=== PATIENT | female | born 1990 | race Hispanic/Latino ===

== ENCOUNTER 2017-09-27 10:35 | Emergency (ER) | payer SELFPAY ==
--- NOTE | 2017-09-27 12:09 | ER ---
Nurse's Notes [facility] Name: Darling Sorenson Age: 27 yrs Sex: Female : 1990 Arrival Date: 09/27/2017 Time: 10:39 Bed 5 Private MD: None, None Diagnosis: Local infection of the skin and subcutaneous tissue, unspecified Presentation: 09/27 10:51 Presenting complaint: Patient states: Painful "bump" behind left ear that started this aj AM. Transition of care: patient was not received from another setting of care. Onset of symptoms was September 27, 2017. Risk Assessment: Do you want to hurt yourself or someone else? Patient reports no desire to harm self or others. Initial Sepsis Screen: Does the patient meet any 2 criteria? No. Patient's initial sepsis screen is negative. Does the patient have a suspected source of infection? No. Patient's initial sepsis screen is negative. Care prior to arrival: None. 10:51 Method Of Arrival: Ambulatory aj 10:51 Acuity: OSCAR 4 aj Triage Assessment: 10:52 General: Appears in no apparent distress. comfortable, Behavior is calm, cooperative, aj appropriate for age. Pain: Complains of pain in left mastoid area. EENT: Lump behind left ear, no redness or drainage noted.. Neuro: Level of Consciousness is awake, alert, obeys commands, Oriented to person, place, time, situation, Appropriate for age. Respiratory: Airway is patent Respiratory effort is even, unlabored. Derm: Skin is intact, is healthy with good turgor, Skin is pink, warm \\T\\ dry. normal. 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 - Social history:: Smoking status: Patient/guardian denies using tobacco. - Ebola Screening: : Patient negative for fever greater than or equal to 101.5 degrees Fahrenheit, and additional compatible Ebola Virus Disease symptoms Patient denies exposure to infectious person Patient denies travel to an Ebola-affected area in the 21 days before illness onset No symptoms or risks identified at this time. Screenin:16 Abuse screen: Denies threats or abuse. Nutritional screening: No deficits noted. ae1 Tuberculosis screening: No symptoms or risk factors identified. Fall Risk None identified. Assessment: 11:30 General: Appears in no apparent distress. uncomfortable, Behavior is calm, cooperative, jl7 appropriate for age. Pain: Complains of pain in left ear Pain does not radiate. Pain currently is 9 out of 10 on a pain scale. Quality of pain is described as throbbing, Is continuous. Neuro: Level of Consciousness is awake, alert, obeys commands, Oriented to person, place, time, situation. Cardiovascular: Patient's skin is warm and dry. Respiratory: Airway is patent Respiratory effort is even, unlabored, Respiratory pattern is regular, agonal. EENT: ear wax noted in bilateral ears, tympanic membrane not visualized. 12:16 Reassessment: No changes from previously documented assessment. ae1 Vital Signs: 10:52 BP 133 / 97; Pulse 85; Resp 19; Temp 98.6; Pulse Ox 99% on R/A; Weight 81.65 kg; Height aj 5 ft. 3 in. (160.02 cm); 10:52 Body Mass Index 31.89 (81.65 kg, 160.02 cm) aj ED Course: 10:39 Patient arrived in ED. mr 10:39 None, None is Private Physician. mr 10:51 Triage completed. aj 10:52 Arm band placed on right wrist. Patient placed in waiting room. aj 11:30 Augie Montoya, DAVIAN is Primary Nurse. ae1 11:30 Miko Joseph PA is PHCP. jr8 11:30 Tee Goodman MD is Attending Physician. jr8 12:08 Sandie Spence MD is Referral Physician. jr8 12:16 Bed in low position. Call light in reach. Side rails up X 1. Pulse ox on. NIBP on. ae1 12:16 No provider procedures requiring assistance completed. Patient did not have IV access ae1 during this emergency room visit. Administered Medications: No medications were administered Outcome: 12:09 Discharge ordered by . jr8 12:16 Discharged to home ambulatory. ae1 12:16 Condition: stable 12:16 Discharge instructions given to patient, Instructed on discharge instructions, follow up and referral plans. medication usage, Demonstrated understanding of instructions, Prescriptions given X 3. 12:17 Patient left the ED. ae1 Signatures: Munira Marie, RN Sapphire Bell Josh, PA PA jr8 Augie Montoya RN RN ae1 Riley Anguiano RN RN jl7
--- NOTE | 2017-09-27 12:10 | EDPHYS ---
Physician Documentation [facility] Name: Darling Sorenson Age: 27 yrs Sex: Female : 1990 Arrival Date: 09/27/2017 Time: 10:39 Bed 5 Private MD: None, None ED Physician Tee Goodman HPI: 09/27 12:02 This 27 yrs old Female presents to ER via Ambulatory with complaints of Ear jr8 Pain, Headache. 12:02 The patient presents with pain, tenderness. The complaints affect the posterior aspect jr8 of left ear. Onset: The symptoms/episode began/occurred acutely, yesterday. Modifying factors: The symptoms are alleviated by nothing, the symptoms are aggravated by touching. Associated signs and symptoms: The patient has no apparent associated signs or symptoms. Severity of symptoms: At their worst the symptoms were moderate in the emergency department the symptoms are unchanged. The patient has not experienced similar symptoms in the past. The patient has not recently seen a physician. 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 - Social history:: Smoking status: Patient/guardian denies using tobacco. - Ebola Screening: : Patient negative for fever greater than or equal to 101.5 degrees Fahrenheit, and additional compatible Ebola Virus Disease symptoms Patient denies exposure to infectious person Patient denies travel to an Ebola-affected area in the 21 days before illness onset No symptoms or risks identified at this time. ROS: 12:02 Eyes: Negative for injury, pain, redness, and discharge, Neck: Negative for injury, jr8 pain, and swelling, Cardiovascular: Negative for chest pain, palpitations, and edema, Respiratory: Negative for shortness of breath, cough, wheezing, and pleuritic chest pain, Abdomen/GI: Negative for abdominal pain, nausea, vomiting, diarrhea, and constipation, Back: Negative for injury and pain, MS/Extremity: Negative for injury and deformity, Skin: Negative for injury, rash, and discoloration. 12:02 ENT: Positive for ear pain, Negative for drainage from ear(s), tinnitus. 12:02 Neuro: Positive for headache. Exam: 12:02 Head/Face: Normocephalic, atraumatic. Eyes: Pupils equal round and reactive to light, jr8 extra-ocular motions intact. Lids and lashes normal. Conjunctiva and sclera are non-icteric and not injected. Cornea within normal limits. Periorbital areas with no swelling, redness, or edema. Neck: Trachea midline, no thyromegaly or masses palpated, and no cervical lymphadenopathy. Supple, full range of motion without nuchal rigidity, or vertebral point tenderness. No Meningismus. Cardiovascular: Regular rate and rhythm with a normal S1 and S2. No gallops, murmurs, or rubs. Normal PMI, no JVD. No pulse deficits. Respiratory: Lungs have equal breath sounds bilaterally, clear to auscultation and percussion. No rales, rhonchi or wheezes noted. No increased work of breathing, no retractions or nasal flaring. Abdomen/GI: Soft, non-tender, with normal bowel sounds. No distension or tympany. No guarding or rebound. No evidence of tenderness throughout. Back: No spinal tenderness. No costovertebral tenderness. Full range of motion. Skin: Warm, dry with normal turgor. Normal color with no rashes, no lesions, and no evidence of cellulitis. MS/ Extremity: Pulses equal, no cyanosis. Neurovascular intact. Full, normal range of motion. Neuro: Awake and alert, GCS 15, oriented to person, place, time, and situation. Cranial nerves II-XII grossly intact. Motor strength 5/5 in all extremities. Sensory grossly intact. Cerebellar exam normal. Normal gait. 12:02 ENT: External ear(s): posterior aspect of cartilage near lobule of ear is inflamed. No fluctuance noted, Ear canal(s): are normal, TM's: are normal, Examination of the other ear shows no obvious abnormality, Nose: is normal, Mouth: is normal, Posterior pharynx: is normal. Vital Signs: 10:52 BP 133 / 97; Pulse 85; Resp 19; Temp 98.6; Pulse Ox 99% on R/A; Weight 81.65 kg; Height aj 5 ft. 3 in. (160.02 cm); 10:52 Body Mass Index 31.89 (81.65 kg, 160.02 cm) aj MDM: 11:30 Patient medically screened. jr8 12:02 Data reviewed: vital signs, nurses notes, and as a result, I will discharge patient. jr8 Data interpreted: Pulse oximetry: on room air is 99 %. Interpretation: normal. Counseling: I had a detailed discussion with the patient and/or guardian regarding: the historical points, exam findings, and any diagnostic results supporting the discharge/admit diagnosis, the need for outpatient follow up, an ENT specialist, a family practitioner, to return to the emergency department if symptoms worsen or persist or if there are any questions or concerns that arise at home. Administered Medications: No medications were administered Disposition: 15:28 Co-signature as Attending Physician, Tee Goodman MD. rn Disposition: 09/27/17 12:09 Discharged to Home. Impression: Local infection of the skin and subcutaneous tissue, unspecified. - Condition is Stable. - Prescriptions for Ibuprofen 800 mg Oral Tablet - take 1 tablet by ORAL route every 12 hours As needed take with food; 20 tablet. Tylenol- Codeine #3 300-30 mg Oral Tablet - take 2 tablets by ORAL route every 6 hours As needed; 20 tablet. Bactrim DS 800- 160 mg Oral Tablet - take 1 tablet by ORAL route every 12 hours for 10 days; 20 tablet. - Medication Reconciliation Form, Thank You Letter, Antibiotic Education, Prescription Opioid Use, Work release form form. - Follow up: Sandie Spence MD; When: 1 week; Reason: If symptoms return, Recheck today's complaints, Continuance of care, Re-evaluation by your physician. - Problem is new. - Symptoms have improved. Signatures: Munira Marie RN RN aj Nieto, Roman, MD MD rn Roszak, Josh, PA PA jr8 Augie Montoya RN RN ae1 Corrections: (The following items were deleted from the chart) 12:17 12:09 09/27/2017 12:09 Discharged to Home. Impression: Local infection of the skin and ae1 subcutaneous tissue, unspecified. Condition is Stable. Forms are Medication Reconciliation Form, Thank You Letter, Antibiotic Education, Prescription Opioid Use. Follow up: Sandie Spence; When: 1 week; Reason: If symptoms return, Recheck today's complaints, Continuance of care, Re-evaluation by your physician. Problem is new. Symptoms have improved. jr8
[2017-09-27 12:21] VITALS: BP 133/97; TEMP 98.6; O2SAT 99
== END 2017-09-27 12:17 | disposition home or self-care (01) ==
LOC: ER 10:35
DX: L08.9 Local infection of the skin and subcutaneous tissue, unspecified (principal); H92.02 Otalgia, left ear; Z88.0 Allergy status to penicillin
CPT/HCPCS: 99283

== ENCOUNTER 2017-09-29 17:20 | Emergency (ER) | payer SELFPAY ==
[2017-09-29] MEDS ORDERED: HYDROCODONE/APAP 7.5/325 MG TAB ONE (18:15)
--- NOTE | 2017-09-29 18:16 | ER ---
Nurse's Notes [facility] Name: Darling Sorenson Age: 27 yrs Sex: Female : 1990 Arrival Date: 09/29/2017 Time: 17:23 Bed 15 Private MD: None, None Diagnosis: Cutaneous abscess of other sites-Left post auricular region Presentation: 09/29 18:00 Presenting complaint: Patient states: she was here last Fri for ear pain and was mg2 prescribed antibiotics but to no relief. there is a bump or abscess in the back of her left ear. Transition of care: patient was not received from another setting of care. Onset of symptoms was September 2017. Risk Assessment: Do you want to hurt yourself or someone else? Patient reports no desire to harm self or others. Initial Sepsis Screen: Does the patient meet any 2 criteria? No. Patient's initial sepsis screen is negative. Does the patient have a suspected source of infection? No. Patient's initial sepsis screen is negative. Care prior to arrival: None. 18:00 Method Of Arrival: Ambulatory mg2 18:00 Acuity: OSCAR 4 mg2 Triage Assessment: 18:25 General: Appears in no apparent distress. Behavior is calm. 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 - Social history:: Smoking status: Patient/guardian denies using tobacco, Patient uses alcohol, occasionally. - Ebola Screening: : No symptoms or risks identified at this time. Screenin:06 Abuse screen: Denies threats or abuse. Denies injuries from another. Nutritional mg2 screening: No deficits noted. Tuberculosis screening: No symptoms or risk factors identified. Fall Risk None identified. Assessment: 18:06 Pain: Complains of pain in back of left ear. EENT: back of ear abscess. Derm: Skin is mg2 intact, Skin is pink, warm \T\ dry. normal. Vital Signs: 18:05 BP 135 / 63; Pulse 91; Resp 18; Temp 97.7; Pulse Ox 100% on R/A; Weight 81.65 kg; mg2 Height 5 ft. 3 in. (160.02 cm); Pain 8/10; 18:23 BP 127 / 57; Pulse 68; Resp 18; Pulse Ox 100% on R/A; em 18:05 Body Mass Index 31.89 (81.65 kg, 160.02 cm) mg2 ED Course: 17:23 Patient arrived in ED. mr 17:23 None, None is Private Physician. mr 17:52 Miko Joseph PA is PHCP. jr8 17:52 Kris Thompson MD is Attending Physician. jr8 17:59 Quoc Mccoy, RN is Primary Nurse. mg2 18:02 Triage completed. mg2 18:06 Arm band placed on. mg2 18:07 No provider procedures requiring assistance completed. mg2 18:10 Patient has correct armband on for positive identification. mg2 18:23 Dressings: Band aid x 1 in the left ear done with neosporin and band aid applied. mg2 18:24 Patient did not have IV access during this emergency room visit. em Administered Medications: 18:14 Drug: [place] (7.5 mg-325 mg) 1 tabs Route: PO; mg2 18:24 Follow up: Response: No adverse reaction mg2 18:24 Follow up: Response: No adverse reaction; Pain is decreased em Outcome: 18:15 Discharge ordered by . jr8 18:24 Discharged to home ambulatory. em 18:24 Condition: good 18:24 Discharge instructions given to patient, Instructed on discharge instructions, follow up and referral plans. Demonstrated understanding of instructions, follow-up care. 18:25 Patient left the ED. em Signatures: Sapphire Arizmendi mr MinerAbraham, SOLAR DESIGN ENGINEER SOLAR DESIGN ENGINEER em Miko Joseph PA PA jr8 Quoc Mccoy, RN RN mg2
--- NOTE | 2017-09-29 18:16 | EDPHYS ---
Physician Documentation [facility] Name: Darling Sorenson Age: 27 yrs Sex: Female : 1990 Arrival Date: 09/29/2017 Time: 17:23 Bed 15 Private MD: None, None ED Physician Kris Thompson HPI: 09/29 18:09 This 27 yrs old Female presents to ER via Ambulatory with complaints of Ear jr8 Pain. 18:09 The patient presents with pain, swelling, tenderness. Associated signs and symptoms: jr8 The patient has no apparent associated signs or symptoms. The patient has not experienced similar symptoms in the past. The patient has been recently seen by a physician:. Patient seen the other day and given antibiotics for infected region behind ear. Came back today because there is pustule formation . 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 - Social history:: Smoking status: Patient/guardian denies using tobacco, Patient uses alcohol, occasionally. - Ebola Screening: : No symptoms or risks identified at this time. ROS: 18:09 Eyes: Negative for injury, pain, redness, and discharge, ENT: Patient has pain and jr8 swelling to left post auricular region. Negative for inner ear discharge, nasal discharge, eye pain Neck: Negative for injury, pain, and swelling, Cardiovascular: Negative for chest pain, palpitations, and edema, Respiratory: Negative for shortness of breath, cough, wheezing, and pleuritic chest pain, Abdomen/GI: Negative for abdominal pain, nausea, vomiting, diarrhea, and constipation, Back: Negative for injury and pain, MS/Extremity: Negative for injury and deformity, Skin: Negative for injury, rash, and discoloration, Neuro: Negative for headache, weakness, numbness, tingling, and seizure. Exam: 18:09 Eyes: Pupils equal round and reactive to light, extra-ocular motions intact. Lids and jr8 lashes normal. Conjunctiva and sclera are non-icteric and not injected. Cornea within normal limits. Periorbital areas with no swelling, redness, or edema. ENT: Nares patent. No nasal discharge, no septal abnormalities noted. Tympanic membranes are normal and external auditory canals are clear. Oropharynx with no redness, swelling, or masses, exudates, or evidence of obstruction, uvula midline. Mucous membranes moist. Neck: Trachea midline, no thyromegaly or masses palpated, and no cervical lymphadenopathy. Supple, full range of motion without nuchal rigidity, or vertebral point tenderness. No Meningismus. Cardiovascular: Regular rate and rhythm with a normal S1 and S2. No gallops, murmurs, or rubs. Normal PMI, no JVD. No pulse deficits. Respiratory: Lungs have equal breath sounds bilaterally, clear to auscultation and percussion. No rales, rhonchi or wheezes noted. No increased work of breathing, no retractions or nasal flaring. Abdomen/GI: Soft, non-tender, with normal bowel sounds. No distension or tympany. No guarding or rebound. No evidence of tenderness throughout. Back: No spinal tenderness. No costovertebral tenderness. Full range of motion. Skin: Warm, dry with normal turgor. Normal color with no rashes, no lesions, and no evidence of cellulitis. MS/ Extremity: Pulses equal, no cyanosis. Neurovascular intact. Full, normal range of motion. Neuro: Awake and alert, GCS 15, oriented to person, place, time, and situation. Cranial nerves II-XII grossly intact. Motor strength 5/5 in all extremities. Sensory grossly intact. Cerebellar exam normal. Normal gait. 18:09 Head/face: Noted is small abscess to left post auricular region. Vital Signs: 18:05 BP 135 / 63; Pulse 91; Resp 18; Temp 97.7; Pulse Ox 100% on R/A; Weight 81.65 kg; mg2 Height 5 ft. 3 in. (160.02 cm); Pain 8/10; 18:23 BP 127 / 57; Pulse 68; Resp 18; Pulse Ox 100% on R/A; em 18:05 Body Mass Index 31.89 (81.65 kg, 160.02 cm) mg2 Procedures: 18:09 I \T\ D: Incision and drainage was performed for an abscess of the left post auricular jr8 region Patient has small 2 cm abscess behind ear. Palpation of abscess alone deroofed abscess and drained about 3 cc of purulent matter from abscess . MDM: 17:52 Patient medically screened. jr8 18:09 Data reviewed: vital signs, nurses notes, lab test result(s), and as a result, I will jr8 discharge patient. Data interpreted: Pulse oximetry: on room air is 100 %. Interpretation: normal. Counseling: I had a detailed discussion with the patient and/or guardian regarding: the historical points, exam findings, and any diagnostic results supporting the discharge/admit diagnosis, lab results, the need for outpatient follow up, to return to the emergency department if symptoms worsen or persist or if there are any questions or concerns that arise at home. ED course: Told patient to let it continue to bleed and naturally drained. Abscess was drained to only blood was seen. To continue Bactrim. If we need to change antibiotics, that we will notify her after culture was grown . 09/29 18:09 Order name: Wound Culture jr8 Administered Medications: 18:14 Drug: [place] (7.5 mg-325 mg) 1 tabs Route: PO; mg2 18:24 Follow up: Response: No adverse reaction mg2 18:24 Follow up: Response: No adverse reaction; Pain is decreased em Disposition: 09/30 10:33 Co-signature as Attending Physician, Kris Thompson MD. Disposition: 09/29/17 18:15 Discharged to Home. Impression: Cutaneous abscess of other sites - Left post auricular region . - Condition is Stable. - Discharge Instructions: Abscess, Incision and Drainage. - Medication Reconciliation Form, Thank You Letter, Antibiotic Education, Prescription Opioid Use form. - Follow up: Private Physician; When: 5 - 6 days; Reason: Recheck today's complaints, Continuance of care, Re-evaluation by your physician. - Problem is new. - Symptoms have improved. Signatures: Dispatcher [employer] EDMS Abraham Miner, CARE MANAGEMENT ASSISTANT CARE MANAGEMENT ASSISTANT em Miko Joseph PA PA jrKris Ramsay MD MD Quoc Mccoy RN RN mg2 Corrections: (The following items were deleted from the chart) 09/29 18:12 18:09 Head/face: Noted is small abscess to post auricular region. jr8 jr8 18:25 18:15 09/29/2017 18:15 Discharged to Home. Impression: Cutaneous abscess of other sites em - Left post auricular region . Condition is Stable. Forms are Medication Reconciliation Form, Thank You Letter, Antibiotic Education, Prescription Opioid Use. Follow up: Private Physician; When: 5 - 6 days; Reason: Recheck today's complaints, Continuance of care, Re-evaluation by your physician. Problem is new. Symptoms have improved. jr8
[2017-09-29 18:30] VITALS: TEMP 97.7; O2SAT 100
[2017-09-29 18:31] VITALS: BP 127/57
== END 2017-09-29 18:25 | disposition home or self-care (01) ==
LOC: ER 17:20
PROC: 0H93XZZ Drainage of Left Ear Skin, External Approach (ICD-10-PCS; principal; 2017-09-29)
DX: H60.02 Abscess of left external ear (principal); Z88.0 Allergy status to penicillin
CPT/HCPCS: 87070; 87205; 99283

== ENCOUNTER 2018-02-19 11:26 | Emergency (ER) | payer SELFPAY ==
--- NOTE | 2018-02-19 13:13 | RAD REPORT ---
EXAM DESCRIPTION: Jeff Rodriguez And Maggy (2 Views)02/19/2018 12:48 pm CLINICAL HISTORY: Cough COMPARISON: None FINDINGS: An area of subsegmental axis present within the left lung base. The remainder of the lungs appear clear of acute infiltrate. The heart is normal size
--- NOTE | 2018-02-19 13:45 | ER ---
Nurse's Notes [facility] Name: Darling Sorenson Age: 27 yrs Sex: Female : 1990 Arrival Date: 02/19/2018 Time: 11:31 Bed 10 Private MD: None, None Diagnosis: Muscle spasm;Acute bronchitis Presentation: 02/19 11:43 Presenting complaint: Patient states: Cough, congestion, pain with cough or deep breath aj fro 3 days. Transition of care: patient was not received from another setting of care. Onset of symptoms was February 16, 2018. Risk Assessment: Do you want to hurt yourself or someone else? Patient reports no desire to harm self or others. Initial Sepsis Screen: Does the patient meet any 2 criteria? No. Patient's initial sepsis screen is negative. Does the patient have a suspected source of infection? No. Patient's initial sepsis screen is negative. Care prior to arrival: None. 11:43 Method Of Arrival: Ambulatory aj 11:43 Acuity: OSCAR 3 aj Triage Assessment: 11:45 General: Appears in no apparent distress. comfortable, Behavior is calm, cooperative, aj appropriate for age. EENT: Reports nasal congestion nasal discharge. Neuro: Level of Consciousness is awake, alert, obeys commands, Oriented to person, place, time, situation, Appropriate for age. Respiratory: Reports cough that is pain with cough pain with respiration Airway is patent Respiratory effort is even, unlabored, Respiratory pattern is regular, symmetrical, Onset: The symptoms/episode began/occurred gradually, the patient has mild shortness of breath. Derm: Skin is intact, is healthy with good turgor, Skin is pink, warm \T\ dry. normal. 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 - Social history:: Smoking status: Patient/guardian denies using tobacco. - Ebola Screening: : Patient negative for fever greater than or equal to 101.5 degrees Fahrenheit, and additional compatible Ebola Virus Disease symptoms Patient denies exposure to infectious person Patient denies travel to an Ebola-affected area in the 21 days before illness onset No symptoms or risks identified at this time. Screenin:15 Abuse screen: Denies threats or abuse. Denies injuries from another. Nutritional iw screening: No deficits noted. Tuberculosis screening: No symptoms or risk factors identified. Fall Risk None identified. Assessment: 13:15 General: Appears in no apparent distress. Pain: Complains of pain in left trapezius and iw anterior aspect of left upper chest and left clavicle. Neuro: Level of Consciousness is awake, alert, obeys commands, Oriented to person, place, time. Cardiovascular: Rhythm is regular. Respiratory: Airway is patent Breath sounds are clear bilaterally. GI: No signs and/or symptoms were reported involving the gastrointestinal system. Derm: Skin is intact, is healthy with good turgor. Musculoskeletal: Range of motion: intact in all extremities. Vital Signs: 11:45 BP 135 / 79; Pulse 90; Resp 20; Temp 97.3(O); Pulse Ox 98% on R/A; Weight 86.18 kg; aj Height 5 ft. 3 in. (160.02 cm); 11:45 Body Mass Index 33.66 (86.18 kg, 160.02 cm) aj ED Course: 11:31 Patient arrived in ED. mr 11:31 None, None is Private Physician. mr 11:44 Triage completed. aj 11:45 Arm band placed on left wrist. Patient placed in waiting room, Patient notified of wait aj time. Labs ordered per protocol. X-ray ordered. 12:34 Patient moved to radiology via wheelchair. jb2 12:34 Terri Coronado, DAVIAN is Primary Nurse. iw 12:35 Anthony Snyder PA is PHCP. jmm 12:35 Jason Lezama MD is Attending Physician. jmm 12:41 X-ray completed. Patient tolerated procedure well. Patient moved back from radiology. jb2 12:41 XRAY Chest Pa And Lat (2 Views) In Process Unspecified. EDMS 13:20 Patient has correct armband on for positive identification. iw 14:10 No provider procedures requiring assistance completed. Patient did not have IV access iw during this emergency room visit. Administered Medications: No medications were administered Outcome: 13:45 Discharge ordered by . jmm 14:12 Discharged to home ambulatory. iw 14:12 Condition: good 14:12 Discharge instructions given to patient, Instructed on discharge instructions, follow up and referral plans. medication usage, Demonstrated understanding of instructions, follow-up care, medications, Prescriptions given X 3. 14:13 Patient left the ED. iw Signatures: Dispatcher [employer] Munira Pabon, Anthony Rodriguez RN, PA PA jmm Rivera, Mary mr Munson, Jim jb2 Terri Coronado RN RN iw
--- NOTE | 2018-02-19 13:45 | EDPHYS ---
Physician Documentation [facility] Name: Darling Sorenson Age: 27 yrs Sex: Female : 1990 Arrival Date: 02/19/2018 Time: 11:31 Bed 10 Private MD: None, None ED Physician Jason Lezama HPI: 02/19 13:35 This 27 yrs old Female presents to ER via Ambulatory with complaints of jmm Breathing Difficulty, Painful Cough. 13:35 The patient or guardian reports cough, that is intermittent. Onset: The jmm symptoms/episode began/occurred gradually. Modifying factors: the symptoms are aggravated by. Associated signs and symptoms: Pertinent positives: sore throat. This is a 27 year old female with no chronic medical conditions that presents to the ED with cough, sore throat, with left upper back pain worsened with cough. . 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 - Social history:: Smoking status: Patient/guardian denies using tobacco. - Ebola Screening: : Patient negative for fever greater than or equal to 101.5 degrees Fahrenheit, and additional compatible Ebola Virus Disease symptoms Patient denies exposure to infectious person Patient denies travel to an Ebola-affected area in the 21 days before illness onset No symptoms or risks identified at this time. ROS: 13:35 Constitutional: Negative for fever, chills, and weight loss, Eyes: Negative for injury, jmm pain, redness, and discharge. 13:35 Abdomen/GI: Negative for abdominal pain, nausea, vomiting, diarrhea, and constipation. 13:35 MS/Extremity: Negative for injury and deformity, Skin: Negative for injury, rash, and discoloration. 13:35 Cardiovascular: Positive for chest pain, with cough. 13:35 Respiratory: Positive for cough. 13:35 Back: Positive for pain with movement. 13:35 All other systems are negative. Exam: 13:35 Head/Face: atraumatic. ENT: Moist Mucus Membranes Neck: Trachea midline, Supple jmm 13:35 Constitutional: The patient appears in no acute distress, alert, awake. 13:35 Chest/axilla: Palpation: tenderness, that is mild, of the left clavicle and anterior aspect of left upper chest, that totally reproduces the patient's complaints. 13:35 Cardiovascular: Rate: normal, Rhythm: regular. 13:35 Respiratory: the patient does not display signs of respiratory distress, Respirations: normal, Breath sounds: are clear throughout. 13:35 Abdomen/GI: Inspection: abdomen appears normal, Bowel sounds: normal, Palpation: abdomen is soft and non-tender. 13:35 Back: muscle spasm, is appreciated in the left trapezius. 13:35 Musculoskeletal/extremity: ROM: intact in all extremities. 13:35 Skin: Appearance: Color: normal in color. 13:35 Neuro: Orientation: is normal, Mentation: is normal, Memory: is normal. 13:35 Psych: Behavior/mood is pleasant, cooperative. Vital Signs: 11:45 BP 135 / 79; Pulse 90; Resp 20; Temp 97.3(O); Pulse Ox 98% on R/A; Weight 86.18 kg; aj Height 5 ft. 3 in. (160.02 cm); 11:45 Body Mass Index 33.66 (86.18 kg, 160.02 cm) aj MDM: 12:52 Patient medically screened. [facility] 13:43 Data reviewed: vital signs, nurses notes, lab test result(s), radiologic studies, plain [facility] films. Counseling: I had a detailed discussion with the patient and/or guardian regarding: the historical points, exam findings, and any diagnostic results supporting the discharge/admit diagnosis, lab results, radiology results, the need for outpatient follow up, to return to the emergency department if symptoms worsen or persist or if there are any questions or concerns that arise at home. 13:43 Data interpreted: Pulse oximetry: on room air is 98 %. Interpretation: normal. [facility] 13:43 ED course: PE findings consistent with musculoskeletal chest pain. Patient is alert and jmm non toxic in appearance in the ED. Patient given strict return precautions. Patient understood and agrees with the plan of care. . 02/19 11:47 Order name: Flu; Complete Time: 12:55 02/19 11:47 Order name: Strep; Complete Time: 12:55 02/19 11:47 Order name: XRAY Chest Pa And Lat (2 Views); Complete Time: 13:16 beatriz 02/19 12:16 Order name: Throat Culture EDMS Administered Medications: No medications were administered Disposition: 16:59 Co-signature as Attending Physician, Jason Lezama MD I agree with the assessment and [facility] plan of care. Disposition: 02/19/18 13:45 Discharged to Home. Impression: Muscle spasm, Acute bronchitis. - Condition is Stable. - Discharge Instructions: Acute Bronchitis, Adult, Spasticity. - Prescriptions for promethazine- DM - take 5 milliliter by ORAL route every 4-6 hours; 120 milliliter. Cyclobenzaprine 10 mg Oral Tablet - take 1 tablet by ORAL route every 8 hours As needed; 30 tablet. Albuterol Sulfate 90 mcg/actuation - inhale 1-2 puff by INHALATION route every 4-6 hours; 1 Inhaler. - Medication Reconciliation Form, Thank You Letter, Antibiotic Education, Prescription Opioid Use, Work release form form. - Follow up: Private Physician; When: 2 - 3 days; Reason: Recheck today's complaints, Continuance of care, Re-evaluation by your physician. Signatures: Dispatcher [employer] Munira Pabon, RN RN Jason Haynes MD MD cha Mickail, Joel, PA PA jmm Williams, Irene, RN RN iw Corrections: (The following items were deleted from the chart) 14:13 13:45 02/19/2018 13:45 Discharged to Home. Impression: Muscle spasm; Acute bronchitis. iw Condition is Stable. Forms are Medication Reconciliation Form, Thank You Letter, Antibiotic Education, Prescription Opioid Use. Follow up: Private Physician; When: 2 - 3 days; Reason: Recheck today's complaints, Continuance of care, Re-evaluation by your physician. christina
[2018-02-19] MEDS ORDERED: DEXAMETHASONE 4 MG/ML VIAL ONE (14:07)
[2018-02-19 15:54] VITALS: BP 135/79; TEMP 97.3; O2SAT 98
== END 2018-02-19 14:13 | disposition home or self-care (01) ==
LOC: ER 11:26
DX: J20.9 Acute bronchitis, unspecified (principal); M62.830 Muscle spasm of back; Z88.0 Allergy status to penicillin; Z88.1 Allergy status to other antibiotic agents
CPT/HCPCS: 71046; 87070; 87081; 87804; 99283

== ENCOUNTER 2018-09-07 08:26 | Emergency (ER) | payer SELFPAY ==
--- NOTE | 2018-09-07 08:56 | EDPHYS ---
Physician Documentation [facility] Name: Darling Sorenson Age: 28 yrs Sex: Female : 1990 Arrival Date: 09/07/2018 Time: 08:28 Bed 18 Private MD: ED Physician Kris Thompson HPI: 09/07 08:50 This 28 yrs old Female presents to ER via Ambulatory with complaints of Eye gs Problem. 08:50 The patient is experiencing pain, redness, The patient sustained Unknown. to the right gs eye. Onset: The symptoms/episode began/occurred gradually, yesterday. Duration: the symptoms are continuous. Aggravated by blinking, closing eye. Associated signs and symptoms: Pertinent negatives: fever, headache. Patient wears soft contacts. Severity of symptoms: At their worst the symptoms were severe in the emergency department the symptoms are unchanged. The patient has experienced similar episodes in the past, a few times. 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 - Social history:: Smoking status: Patient/guardian denies using tobacco. - Ebola Screening: : No symptoms or risks identified at this time. ROS: 08:50 All other systems are negative. gs Exam: 08:50 Head/Face: Normocephalic, atraumatic. ENT: Nares patent. No nasal discharge, no gs septal abnormalities noted. Tympanic membranes are normal and external auditory canals are clear. Oropharynx with no redness, swelling, or masses, exudates, or evidence of obstruction, uvula midline. Mucous membranes moist. Neck: Trachea midline, no thyromegaly or masses palpated, and no cervical lymphadenopathy. Supple, full range of motion without nuchal rigidity, or vertebral point tenderness. No Meningismus. 08:50 Eyes: Periorbital structures: appear normal, Pupils: no acute changes, normal size, equal, round, and reactive to light and accomodation, Extraocular movements: intact throughout, Conjunctiva: injected, in the right eye, Corneas: are normal, Anterior chamber: normal, no hyphema. Vital Signs: 08:42 BP 104 / 69; Pulse 84; Resp 16; Temp 97.5(TE); Pulse Ox 100% on R/A; Weight 92.08 kg; mh5 Height 5 ft. 3 in. (160.02 cm); Pain 7/10; 08:45 BP 104 / 69; Pulse 84; Resp 16; Temp 97.5; Pulse Ox 100% ; Weight 92.08 kg; Height 5 bp ft. 3 in. (160.02 cm); 09:18 BP 102 / 64; Pulse 72; Resp 16; Pulse Ox 98% ; bp 08:45 Body Mass Index 35.96 (92.08 kg, 160.02 cm) bp MDM: 08:50 Patient medically screened. 08:50 Differential diagnosis: Corneal abrasion of Data reviewed: vital signs, nurses notes. gs Administered Medications: No medications were administered Disposition: 09/07/18 08:55 Discharged to Home. Impression: Conjunctivitis. - Condition is Stable. - Discharge Instructions: Bacterial Conjunctivitis. - Prescriptions for Ocuflox 0.3 % Ophthalmic Drops - instill 2 drops by OPHTHALMIC route every 6 hours for 5 days; 5 milliliter. - Work release form, Medication Reconciliation Form, Thank You Letter, Antibiotic Education, Prescription Opioid Use form. - Follow up: Private Physician; When: 2 - 3 days; Reason: Re-evaluation by your physician. Signatures: Kris Thompson MD MD gs Peltier, Brian RN RN bp Corrections: (The following items were deleted from the chart) 09:19 08:55 09/07/2018 08:55 Discharged to Home. Impression: Conjunctivitis. Condition is bp Stable. Forms are Medication Reconciliation Form, Thank You Letter, Antibiotic Education, Prescription Opioid Use. Follow up: Private Physician; When: 2 - 3 days; Reason: Re-evaluation by your physician. gs
--- NOTE | 2018-09-07 08:56 | ER ---
Nurse's Notes [facility] Name: Darling Sorenson Age: 28 yrs Sex: Female : 1990 Arrival Date: 09/07/2018 Time: 08:28 Bed 18 Private MD: Diagnosis: Conjunctivitis Presentation: 09/07 08:30 Presenting complaint: Patient states: R EYE REDNESS. Transition of care: patient was bp not received from another setting of care. Onset of symptoms is unknown. Risk Assessment: Do you want to hurt yourself or someone else? Patient reports no desire to harm self or others. Initial Sepsis Screen: Does the patient meet any 2 criteria? No. Patient's initial sepsis screen is negative. Does the patient have a suspected source of infection? No. Patient's initial sepsis screen is negative. Care prior to arrival: None. 08:30 Method Of Arrival: Ambulatory bp 08:30 Acuity: OSCAR 4 bp Triage Assessment: 08:45 General: Appears in no apparent distress. comfortable, Behavior is cooperative, bp appropriate for age, anxious. Pain: Complains of pain in right eye. EENT: Eyes with exudate noted from right eye. Neuro: Level of Consciousness is awake, alert, obeys commands, Oriented to person, place, time, situation, Appropriate for age. Cardiovascular: No deficits noted. Respiratory: Airway is patent Respiratory effort is even, unlabored, Respiratory pattern is regular, symmetrical. GI: No signs and/or symptoms were reported involving the gastrointestinal system. : No signs and/or symptoms were reported regarding the genitourinary system. Derm: No deficits noted. Musculoskeletal: No deficits noted. 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 - Social history:: Smoking status: Patient/guardian denies using tobacco. - Ebola Screening: : No symptoms or risks identified at this time. Screenin:48 Abuse screen: Denies threats or abuse. Denies injuries from another. Nutritional bp screening: No deficits noted. Tuberculosis screening: No symptoms or risk factors identified. Fall Risk None identified. Assessment: 08:48 General: SEE TRIAGE NOTE. bp 09:19 Reassessment: PT D/C HOME AMBULATORY, DX WITH BACTERIAL CONJUNCTIVITIS. bp Vital Signs: 08:42 BP 104 / 69; Pulse 84; Resp 16; Temp 97.5(TE); Pulse Ox 100% on R/A; Weight 92.08 kg; mh5 Height 5 ft. 3 in. (160.02 cm); Pain 7/10; 08:45 BP 104 / 69; Pulse 84; Resp 16; Temp 97.5; Pulse Ox 100% ; Weight 92.08 kg; Height 5 bp ft. 3 in. (160.02 cm); 09:18 BP 102 / 64; Pulse 72; Resp 16; Pulse Ox 98% ; bp 08:45 Body Mass Index 35.96 (92.08 kg, 160.02 cm) bp ED Course: 08:28 Patient arrived in ED. as 08:34 Kris Thompson MD is Attending Physician. 08:43 Nakul Chapa, RN is Primary Nurse. bp 08:45 Triage completed. bp 08:45 Arm band placed on. bp 08:48 Patient has correct armband on for positive identification. Bed in low position. Call bp light in reach. Side rails up X2. 08:48 No provider procedures requiring assistance completed. Patient did not have IV access bp during this emergency room visit. Administered Medications: No medications were administered Outcome: 08:55 Discharge ordered by . gs 09:18 Discharged to home ambulatory. bp 09:18 Condition: stable 09:18 Discharge instructions given to patient, Instructed on discharge instructions, follow up and referral plans. medication usage, Demonstrated understanding of instructions, follow-up care, medications, Prescriptions given X 1. 09:19 Patient left the ED. bp Signatures: Dominga Peralta [facility] Kris Thompson MD MD Nakul Chapa, RN RN bp
[2018-09-07 09:39] VITALS: TEMP 97.5
[2018-09-07 09:48] VITALS: BP 102/64; O2SAT 98
== END 2018-09-07 09:19 | disposition home or self-care (01) ==
LOC: ER 08:26
DX: H10.9 Unspecified conjunctivitis (principal); Z88.0 Allergy status to penicillin; Z88.1 Allergy status to other antibiotic agents
CPT/HCPCS: 99282

== ENCOUNTER 2019-09-27 21:43 | Emergency (ER) | payer SELFPAY ==
--- NOTE | 2019-09-27 23:44 | EDPHYS ---
Physician Documentation [facility] Name: Darling Sorenson Age: 29 yrs Sex: Female : 1990 Arrival Date: 09/27/2019 Time: 21:46 Bed 12 Private MD: ED Physician Tee Goodman HPI: 09/26 22:56 This 29 yrs old Female presents to ER via Ambulatory with complaints of kb Breathing Difficulty, Rib Pain. 22:56 The patient presents with pain that is acute, and tenderness. The symptoms are located kb in the right mid back. Onset: The symptoms/episode began/occurred 2 day(s) ago. The pain does not radiate. Associated signs and symptoms: Pertinent positives: pain with deep inspiration feeling like it causes shortness of breath. The problem was sustained when lifting heavy object. Modifying factors: The patient symptoms are alleviated by nothing, the patient symptoms are aggravated by any movement. Severity of symptoms: At their worst the symptoms were moderate, in the emergency department the symptoms are unchanged. The patient has not experienced similar symptoms in the past. The patient has not recently seen a physician. Historical: - Allergies: 22:08 Amoxicillin; ss 22:08 PENICILLINS; ss - Home Meds: 22:08 None [Active]; ss - PMHx: 22:08 Hypertension; ss - Immunization history:: Adult Immunizations up to date. - Social history:: Smoking status: Patient denies any tobacco usage or history of. ROS: 22:54 Constitutional: Negative for fever, chills, and weight loss, ENT: Negative for injury, kb pain, and discharge, Neck: Negative for injury, pain, and swelling, Cardiovascular: Negative for chest pain, palpitations, and edema, Abdomen/GI: Negative for abdominal pain, nausea, vomiting, diarrhea, and constipation, MS/Extremity: Negative for injury and deformity, Skin: Negative for injury, rash, and discoloration, Neuro: Negative for headache, weakness, numbness, tingling, and seizure. 22:54 Respiratory: Positive for shortness of breath. 22:54 Back: Positive for pain with movement, of the right mid back. Exam: 22:55 Constitutional: This is a well developed, well nourished patient who is awake, alert, kb and in no acute distress. Head/Face: Normocephalic, atraumatic. Chest/axilla: Normal chest wall appearance and motion. Nontender with no deformity. No lesions are appreciated. Cardiovascular: Regular rate and rhythm with a normal S1 and S2. No gallops, murmurs, or rubs. Normal PMI, no JVD. No pulse deficits. Respiratory: Lungs have equal breath sounds bilaterally, clear to auscultation and percussion. No rales, rhonchi or wheezes noted. No increased work of breathing, no retractions or nasal flaring. Abdomen/GI: Soft, non-tender, with normal bowel sounds. No distension or tympany. No guarding or rebound. No evidence of tenderness throughout. Skin: Warm, dry with normal turgor. Normal color with no rashes, no lesions, and no evidence of cellulitis. MS/ Extremity: Pulses equal, no cyanosis. Neurovascular intact. Full, normal range of motion. Neuro: Awake and alert, GCS 15, oriented to person, place, time, and situation. Cranial nerves II-XII grossly intact. Motor strength 5/5 in all extremities. Sensory grossly intact. Cerebellar exam normal. Normal gait. 22:55 Back: pain, that is moderate, of the right mid back. Vital Signs: 22:05 BP 141 / 89; Pulse 97; Resp 15; Temp 98.5(TE); Pulse Ox 99% on R/A; Weight 86.18 kg; ss Height 5 ft. 2 in. (157.48 cm); Pain 7/10; 22:05 Body Mass Index 34.75 (86.18 kg, 157.48 cm) ss MDM: 22:16 Patient medically screened. kb 22:43 Data reviewed: vital signs, nurses notes. Data interpreted: Pulse oximetry: on room air kb is 99 %. Interpretation: normal. 23:43 Counseling: I had a detailed discussion with the patient and/or guardian regarding: the kb historical points, exam findings, and any diagnostic results supporting the discharge/admit diagnosis, radiology results, the need for outpatient follow up, a family practitioner, to return to the emergency department if symptoms worsen or persist or if there are any questions or concerns that arise at home. 09/26 22:14 Order name: Chest Single View XRAY kb 09/26 22:16 Order name: Ribs Right XRAY Administered Medications: 23:51 Drug: TORadol 30 mg Route: IM; Site: right gluteus; ss 09/27 00:09 Follow up: Response: No adverse reaction; Medication administered at discharge. ss Disposition: 04:21 Co-signature as Attending Physician, Tee Goodman MD. rn Disposition: 09/27/19 23:44 Discharged to Home. Impression: Right Rib Pain. - Condition is Stable. - Discharge Instructions: Rib Contusion, Rib Fracture, [id number]. - Prescriptions for Diclofenac Sodium 75 mg Oral Tablet, Delayed Release (E.C.) - take 1 tablet by ORAL route 2 times per day As needed; 30 tablet. - Medication Reconciliation Form, Thank You Letter, Antibiotic Education, Prescription Opioid Use form. - Follow up: Emergency Department; When: As needed; Reason: Worsening of condition. Follow up: Private Physician; When: 2 - 3 days; Reason: Recheck today's complaints, Continuance of care, Re-evaluation by your physician. Signatures: Dispatcher [employer] EDMN Karin Membreno, [employer] EXCHANGE ADMINISTRATOR-C [employer] EXCHANGE ADMINISTRATOR-Ckb Tee Goodman MD MD rn Smirch, Shelby, RN RN Corrections: (The following items were deleted from the chart) 00:15 09/26 23:44 09/27/2019 23:44 Discharged to Home. Impression: Right Rib Pain. Condition ss is Stable. Forms are Medication Reconciliation Form, Thank You Letter, Antibiotic Education, Prescription Opioid Use. Follow up: Emergency Department; When: As needed; Reason: Worsening of condition. Follow up: Private Physician; When: 2 - 3 days; Reason: Recheck today's complaints, Continuance of care, Re-evaluation by your physician. kb
--- NOTE | 2019-09-27 23:44 | ER ---
Nurse's Notes [facility] Name: Darling Sorenson Age: 29 yrs Sex: Female : 1990 Arrival Date: 09/27/2019 Time: 21:46 Bed 12 Private MD: Diagnosis: Right Rib Pain Presentation: 09/26 22:05 Chief complaint: Patient states: "We were moving some stuff and I was walking upstairs ss with the dresser on the right side of my ribs and now it hurts to take a deep breath and tender when you touch it.". Coronavirus screen: Proceed with normal triage. Patient denies a cough. Patient denies shortness of breath or difficulty breathing. Patient denies measured and/or subjective temperature greater than 100.4F prior to today's visit. Patient denies travel on a cruise ship or to a country the [facility] currently lists as an affected area. Patient denies contact with known and/or suspected case of COVID-19. Ebola Screen: Patient denies exposure to infectious person. Patient denies travel to an Ebola-affected area in the 21 days before illness onset. Initial Sepsis Screen: Does the patient meet any 2 criteria? No. Patient's initial sepsis screen is negative. Does the patient have a suspected source of infection? No. Patient's initial sepsis screen is negative. Risk Assessment: Do you want to hurt yourself or someone else? Patient reports no desire to harm self or others. Onset of symptoms was September 25, 2019. 22:05 Method Of Arrival: Ambulatory ss 22:05 Acuity: OSCAR 3 ss Historical: - Allergies: 22:08 Amoxicillin; ss 22:08 PENICILLINS; ss - Home Meds: 22:08 None [Active]; ss - PMHx: 22:08 Hypertension; ss - Immunization history:: Adult Immunizations up to date. - Social history:: Smoking status: Patient denies any tobacco usage or history of. Screenin:08 Abuse screen: Denies threats or abuse. Denies injuries from another. Nutritional ss screening: No deficits noted. Tuberculosis screening: Never had TB. Fall Risk None identified. Assessment: 22:05 General: Appears in no apparent distress. comfortable, Denies fever, feeling ill, ss fatigue, chills. Pain: Complains of pain in right lateral posterior chest and right lateral anterior chest Pain currently is 7 out of 10 on a pain scale. Quality of pain is described as tender, Is continuous. Neuro: Level of Consciousness is awake, alert, obeys commands, Oriented to person, place, time, situation. Cardiovascular: Capillary refill < 3 seconds is brisk in bilateral fingers. Respiratory: Airway is patent Respiratory effort is even, unlabored, Respiratory pattern is regular, symmetrical. GI: Patient currently denies diarrhea, nausea, vomiting. Derm: Skin is intact, is healthy with good turgor, Skin is dry, Skin is pink, warm \\T\\ dry. normal. Musculoskeletal: Circulation, motion, and sensation intact. Range of motion: intact in all extremities, Swelling absent. 23:54 Reassessment: Patient appears in no apparent distress at this time. Patient is alert, ss oriented x 3, equal unlabored respirations, skin warm/dry/pink. awaiting shot time. Vital Signs: 22:05 BP 141 / 89; Pulse 97; Resp 15; Temp 98.5(TE); Pulse Ox 99% on R/A; Weight 86.18 kg; ss Height 5 ft. 2 in. (157.48 cm); Pain 7/10; 22:05 Body Mass Index 34.75 (86.18 kg, 157.48 cm) ss ED Course: 21:46 Patient arrived in ED. cf2 22:07 Triage completed. ss 22:08 Arm band placed on right wrist. ss 22:08 Patient has correct armband on for positive identification. Bed in low position. Call ss light in reach. 22:14 Karin Membreno FNP-C [facility] kb 22:14 Tee Goodman MD is Attending Physician. kb 23:01 Chest Single View XRAY In Process Unspecified. EDMS 23:01 Ribs Right XRAY In Process Unspecified. EDMS 23:53 No provider procedures requiring assistance completed. Patient did not have IV access ss during this emergency room visit. Administered Medications: 23:51 Drug: TORadol 30 mg Route: IM; Site: right gluteus; ss 09/27 00:09 Follow up: Response: No adverse reaction; Medication administered at discharge. ss Outcome: 09/26 23:44 Discharge ordered by . kb 23:53 Condition: good ss 23:53 Discharge instructions given to patient, Instructed on discharge instructions, follow up and referral plans. medication usage, Demonstrated understanding of instructions, follow-up care, medications, Prescriptions given X 1. 09/27 00:15 Discharged to home ambulatory. 00:15 Patient left the ED. Signatures: Dispatcher [employer] Karin Mtz, Shilpi Gonzalez RN RN Alek Garner cf2
[2019-09-27] MEDS ORDERED: KETOROLAC 30 MG/ML INJ ONE (23:56)
[2019-09-28 01:09] VITALS: BP 141/89; TEMP 98.5; O2SAT 99
--- NOTE | 2019-09-28 12:27 | RAD REPORT ---
EXAM DESCRIPTION: Ribs Right EXAM DESCRIPTION: XR Chest 1 View (accession [id number]) CLINICAL HISTORY: RIB PAIN - RIGHT TECHNIQUE: Single frontal view of the chest is submitted. COMPARISON: None available for comparison FINDINGS: Heart: The cardiothoracic silhouette is within normal limits. Lungs: No focal consolidation. Mediastinum: Unremarkable Pleura: No appreciable effusion. No pneumothorax. Bones: Intact Upper abdomen: Unremarkable IMPRESSION: No acute disease. EXAM DESCRIPTION: XR Ribs Right (accession [id number]) CLINICAL HISTORY: RIB PAIN - RIGHT TECHNIQUE: 3 rib detail views of the right hemithorax are submitted. COMPARISON: None available for comparison FINDINGS: Bones: No acute rib fracture. Heart: The cardiothoracic silhouette is within normal limits. Lungs: No focal consolidation. Mediastinum: Unremarkable Pleura: No appreciable effusion. No pneumothorax. Upper abdomen: Unremarkable IMPRESSION: No acute injury. Electronically signed by: Delores Hou MD 09/27/2019 11:12 PM CDT Due to temporary technical issues with the PACS/Fluency reporting system, reports are being signed by the in house radiologist without review as a courtesy to ensure prompt reporting. The interpreting r adiologist is fully responsible for the content of the report.
--- NOTE | 2019-09-28 12:28 | RAD REPORT ---
EXAM DESCRIPTION: XR Chest 1 View (accession [id number]) CLINICAL HISTORY: RIB PAIN - RIGHT TECHNIQUE: Single frontal view of the chest is submitted. COMPARISON: None available for comparison FINDINGS: Heart: The cardiothoracic silhouette is within normal limits. Lungs: No focal consolidation. Mediastinum: Unremarkable Pleura: No appreciable effusion. No pneumothorax. Bones: Intact Upper abdomen: Unremarkable IMPRESSION: No acute disease. EXAM DESCRIPTION: XR Ribs Right (accession [id number]) CLINICAL HISTORY: RIB PAIN - RIGHT TECHNIQUE: 3 rib detail views of the right hemithorax are submitted. COMPARISON: None available for comparison FINDINGS: Bones: No acute rib fracture. Heart: The cardiothoracic silhouette is within normal limits. Lungs: No focal consolidation. Mediastinum: Unremarkable Pleura: No appreciable effusion. No pneumothorax. Upper abdomen: Unremarkable IMPRESSION: No acute injury. Electronically signed by: Delores Hou MD 09/27/2019 11:12 PM CDT Due to temporary technical issues with the PACS/Fluency reporting system, reports are being signed by the in house radiologist without review as a courtesy to ensure prompt reporting. The interpreting r adiologist is fully responsible for the content of the report.
== END 2019-09-28 00:15 | disposition home or self-care (01) ==
LOC: ER 21:43
DX: R07.81 Pleurodynia (principal); I10 Essential (primary) hypertension; Z88.0 Allergy status to penicillin; Z88.1 Allergy status to other antibiotic agents
CPT/HCPCS: 71045; 96372; 99283

== ENCOUNTER 2022-12-25 19:35 | Emergency (ER) | payer SELFPAY ==
--- OUTSIDE RECORDS SUMMARY | 2022-12-25 19:39 | XMS REPORT | Continuity of Care Document ---
:1990 Author Organization [facility] Address 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 [id number] 2020 00:00:00 Problems Condition Condition Condition Status Onset Resolution Last Treating Co mments Source Name Details Category Date Date Treatment Clinician Date Screening Screening Disease Active Uni vers examinatio examinatio 10-13 it y of n [place] STD [place] (sexually 00 Medi elsa transmitte transmitte Br anch d disease) d disease) 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, Adverse Reactions, Alerts Allergy Allergy Status Severity Reaction(s) Onset Inactive Treating Comm ents Source Name Type Date Date Clinician Amoxicil Propensi Active Unknown - 2017-03 Uni vers coreen ty to See comments 0-25 ity of adverse 00:00: [place] reaction 00 Medical s Branch AMOXICIL DRUG Active Unknown-Cmnt 2017-03 Un patel COREEN INGREDI 0-25 ity of 00:00: [place] 00 Medical [place] Penicill Propensi Active Rash Univer s ins ty to 6-14 ity of adverse 00:00: [place] reaction 00 Medical Branch PENICILL Drug Active Rash Univers INS Class 6-14 ity of 00:00: [place] 00 Medical [place] Social History Social Habit Start Date Stop Date Quantity Comments Source Exposure to Not sure [facility] SARS-CoV-2 [facility] (event) [place] Tobacco use and 2020-11-10 2020-11-10 Never used Universit y of exposure 00:00:00 00:00:00 [facility] [place] [facility] Alcohol intake 2020-11-10 2020-11-10 Ex-drinker [facility] 00:00:00 00:00:00 (finding) [facility] [place] [facility] Sex Assigned At [birth year] Universit y of 00:00:00 00:00:00 [facility] [place] [facility] Smoking Status Start Date Stop Date Source Never smoker [facility] Medications Ordered Filled Start Stop Current Ordering Indication Dosage Frequency Signature Comments Components Source Medication Medication Date Date Medication? Clinician (SIG) Name Name No known No Univers medications [facility] Procedures Procedure Date / Time Performed Performing Clinician Sour e DISCLOSURE AND 2020-11-10 05:01:00 Doctor Unassigned, No Univer [facility] CONSENT, MEDICAL AND Name Medical Bra [facility] SURGICAL PROCEDURES Encounters Start End Encounter Admission Attending Care Care Encounter Source Date/Time Date/Time Type Type Clinicians Facility Department ID 2022-12-28 2022-12-28 Outpatient R CHAYITO [facility] [id number] Univers 09:15:00 09:15:00 ETHAN ity [facility] 2020-11-10 2020-11-10 Outpatient R [facility] [id number] Univers 13:20:00 13:20:00 ity [facility] 2020-11-10 2020-11-10 Orders Doctor FRANCISCA [id number] Univers 00:00:00 00:00:00 Only Unassigned, BRANDIN [id number] ity of [place] [facility] [id number] [place] as [id number] [address] 2020-10-26 2020-10-26 Outpatient Carter REYES [facility] [id number] Univers 07:00:00 07:00:00 MARCELLO montgomery [facility] [place] [facility] 2020-10-13 2020-10-13 Outpatient Carter REYES [facility] [id number] Univers 08:45:00 08:45:00 MARCELLO montgomery [facility] Results This patient has no known results.
[2022-12-25] MEDS ORDERED: KETOROLAC 30 MG/ML INJ ONE (20:23)
--- NOTE | 2022-12-25 20:50 | RAD REPORT ---
EXAM DESCRIPTION: RAD - Knee Right 3 View - 12/25/2022 8:39 pm CLINICAL HISTORY: PAIN COMPARISON: <Comparisons> FINDINGS: No acute fracture or dislocation is evident. Mild soft tissue swelling is seen anteriorly. Mild patella monserrat is possible. No evidence of joint effusion.
--- NOTE | 2022-12-25 21:01 | ER ---
Nurse's Notes [facility] Name: Darling Sorenson Age: 32 yrs Sex: Female : 1990 Arrival Date: 12/25/2022 Time: 19:35 Bed 12 Private MD: Diagnosis: Contusion of right knee Presentation: 12/25 19:52 Chief complaint: Patient states: right knee pain s/p fall on Saturday. Pt states that she cm10 was walking and she stepped off the sidewalk and fell. Pt states that she felt something pop in her knee. Pt has noted swelling to right knee. Coronavirus screen: Vaccine status: Patient reports receiving the 2nd dose of the covid vaccine. Client denies travel out of the [place] in the last 14 days. Ebola Screen: Patient denies travel to an Ebola-affected area in the 21 days before illness onset. No symptoms or risks identified at this time. Initial Sepsis Screen: Does the patient meet any 2 criteria? No. Patient's initial sepsis screen is negative. Does the patient have a suspected source of infection? No. Patient's initial sepsis screen is negative. Risk Assessment: Do you want to hurt yourself or someone else? Patient reports no desire to harm self or others. Onset of symptoms was December 25, 2022. 19:52 Method Of Arrival: Ambulatory cm10 19:52 Acuity: OSCAR 4 cm10 Triage Assessment: 19:54 General: Appears in no apparent distress. comfortable, Behavior is calm, cooperative. cm10 Pain: Complains of pain in right knee Pain radiates to right leg Pain currently is 7 out of 10 on a pain scale. Quality of pain is described as sharp, shooting, throbbing, Aggravated by increased activity. 19:54 Neuro: No deficits noted. Level of Consciousness is awake, alert, obeys commands, cm10 Oriented to person, place, time, situation. Respiratory: No deficits noted. Airway is patent Respiratory effort is even, unlabored, Respiratory pattern is regular, symmetrical. 19:58 Musculoskeletal: Swelling present in right knee Reports pain in right leg and right cm10 knee. 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 - Social history:: Smoking status: Reported history of juuling and/or vaping. Screenin:30 [facility] ED Fall Risk Assessment (Adult) History of falling in the last 3 months, pf1 including since admission No falls in past 3 months (0 pts) Confusion or Disorientation No (0 pts) Intoxicated or Sedated No (0 pts) Impaired Gait No (0 pts) Mobility Assist Device Used No (0 pt) Altered Elimination No (0 pt) Score/Fall Risk Level 0 - 2 = Low Risk Oriented to surroundings, Maintained a safe environment, Educated pt \T\ family on fall prevention, incl call for assistance when getting out of bed, Assessed \T\ reinforced patient's understanding of fall precautions, Provided non-skid footwear, Hourly rounding (assess needs \T\ fall precautionary measures) done, Used ambulatory aids as needed (educated on \T\ assisted with), Used gait belt as appropriate. Abuse screen: Denies threats or abuse. Nutritional screening: No deficits noted. Tuberculosis screening: No symptoms or risk factors identified. Assessment: 21:24 Reassessment: Patient appears in no apparent distress at this time. Patient and/or pf1 family updated on plan of care and expected duration. Pain level reassessed. Patient is alert, oriented x 3, equal unlabored respirations, skin warm/dry/pink. Patient states feeling better. Patient states symptoms have improved. Vital Signs: 19:52 BP 127 / 73; Pulse 84; Resp 18 S; Temp 98.8; Pulse Ox 99% on R/A; Weight 97.52 kg; cm10 Height 5 ft. 3 in. ; Pain 7/10; 19:52 Body Mass Index 38.09 (97.52 kg, 160.02 cm) cm10 19:52 Pain Scale: Adult cm10 ED Course: 19:40 Patient arrived in ED. gm2 19:54 Triage completed. cm10 19:56 Karin Mem[facility]reno FNP-C [facility] kb 19:56 Earl Garnett MD is Attending Physician. kb 19:56 Arm band placed on Patient placed in waiting room. cm10 19:58 Anitha Peralta, DAVIAN is Primary Nurse. cm10 20:30 Patient has correct armband on for positive identification. Bed in low position. Call pf1 light in reach. Provided Education on: follow up. 20:41 Knee Right 3 View XRAY In Process Unspecified. EDMS 21:10 Dustin wrap to right knee. pf1 21:24 No provider procedures requiring assistance completed. Patient did not have IV access pf1 during this emergency room visit. Administered Medications: 20:14 Drug: Ketorolac IM 30 mg IM once Route: IM; Site: right vastus lateralis; cm10 21:22 Follow up: Response: No adverse reaction; Marked relief of symptoms; Pain is decreased pf1 Medication: 21:26 VIS not applicable for this client. pf1 Outcome: 21:00 Discharge ordered by MD. kb 21:25 Discharged to home ambulatory, pf1 21:25 Condition: improved 21:25 Discharge instructions given to patient, Instructed on discharge instructions, follow up and referral plans. Demonstrated understanding of instructions, follow-up care, 21:27 Patient left the ED. pf1 Signatures: Dispatcher [employer] EDDE Karin Membreno FNP-C FNP-Philly Rizzo RN RN pf1 Anitha Peralta RN RN cm10 Sharon Walters gm2 Corrections: (The following items were deleted from the chart) 19:54 19:54 Home Meds: None; cm10 cm10
--- NOTE | 2022-12-25 21:01 | EDPHYS ---
Physician Documentation [facility] Name: Darling Sorenson Age: 32 yrs Sex: Female : 1990 Arrival Date: 12/25/2022 Time: 19:35 Bed 12 Private MD: ED Physician Earl Garnett HPI: 12/25 20:59 This 32 yrs old Female presents to ER via Ambulatory with complaints of Knee kb Pain. 20:59 The patient presents with an injury, pain, swelling. The complaints affect the right kb knee. Context: resulted from the patient falling, the patient can fully bear weight, the patient is able to ambulate. Onset: The symptoms/episode began/occurred 5 day(s) ago. Modifying factors: The symptoms are alleviated by nothing. the symptoms are aggravated by weight bearing. Associated signs and symptoms: Pertinent positives: swelling, Pertinent negatives calf tenderness, fever, nausea, numbness, rash, tingling, vomiting, warmth, weakness. Treatment prior to arrival includes: no previous treatment. Severity of symptoms: At their worst the symptoms were mild, moderate, in the emergency department the symptoms are unchanged. The patient has not experienced similar symptoms in the past. The patient has not recently seen a physician. 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 - Social history:: Smoking status: Reported history of juuling and/or vaping. ROS: 20:54 Constitutional: Negative for fever, chills, and weight loss, kb 20:54 MS/extremity: Positive for pain, swelling, tenderness, of the right knee, 20:54 All other systems are negative, Exam: 20:54 Constitutional: This is a well developed, well nourished patient who is awake, alert, kb and in no acute distress. Head/Face: Normocephalic, atraumatic. ENT: Moist Mucous membranes Cardiovascular: Regular rate Respiratory: Respirations even and unlabored. No increased work of breathing. Talking in full sentences Skin: Warm, dry with normal turgor. Normal color. Neuro: Awake and alert, GCS 15, oriented to person, place, time, and situation. Moves all extremities. Normal gait. 20:54 Musculoskeletal/extremity: Extremities: grossly normal except: noted in the right knee: pain, ROM: intact in all extremities, Circulation is intact in all extremities. Sensation intact. Weight bearing: able to fully bear weight, Vital Signs: 19:52 BP 127 / 73; Pulse 84; Resp 18 S; Temp 98.8; Pulse Ox 99% on R/A; Weight 97.52 kg; cm10 Height 5 ft. 3 in. ; Pain 7/10; 19:52 Body Mass Index 38.09 (97.52 kg, 160.02 cm) cm10 19:52 Pain Scale: Adult cm10 MDM: 19:56 Patient medically screened. kb 20:57 Differential diagnosis: contusion, fracture, sprain. Data reviewed: vital signs, nurses kb notes. I considered the following discharge prescriptions or medication management in the emergency department I discussed and recommended Over The Counter medications. Counseling: I had a detailed discussion with the patient and/or guardian regarding the historical points, exam findings, and any diagnostic results supporting the discharge/admit diagnosis, radiology results, the need for outpatient follow up, a orthopedic surgeon, to return to the emergency department if symptoms worsen or persist or if there are any questions or concerns that arise at home. 12/25 19:57 Order name: Knee Right 3 View XRAY; Complete Time: 20:52 kb 12/25 21:01 Order name: Dustin Wrap; Complete Time: 21:22 kb Administered Medications: 20:14 Drug: Ketorolac IM 30 mg IM once Route: IM; Site: right vastus lateralis; cm10 21:22 Follow up: Response: No adverse reaction; Marked relief of symptoms; Pain is decreased pf1 Disposition: 21:05 Co-signature as Attending Physician, Earl Garnett MD I reviewed the patient's care rt provided by the Advanced Practice Provider and agree with the diagnosis and treatment plan. Disposition Summary: 12/25/22 21:00 Discharge Ordered Notes: Location: Home kb Condition: Stable kb Diagnosis - Contusion of right knee kb Followup: kb - With: Emergency Department - When: As needed - Reason: Worsening of condition Followup: kb - With: Private Physician - When: 2 - 3 days - Reason: Recheck today's complaints, Continuance of care, Re-evaluation by your physician Discharge Instructions: - Discharge Summary Sheet kb - Contusion, [id number] kb Forms: - Medication Reconciliation Form kb - Thank You Letter kb - Antibiotic Education kb - Prescription Opioid Use kb - Patient Portal Instructions kb - Leadership Thank You Letter kb Signatures: Dispatcher [employer] EDKarin Bae, ROLANDO-C HEAD OF MATHEMATICS-Earl Henriquez MD MD rt Anitha Peralta RN RN cm10 Philly Yates RN pf1 Corrections: (The following items were deleted from the chart) 19:54 19:54 Home Meds: None; cm10 cm10
[2022-12-25 21:33] VITALS: BP 127/73; TEMP 98.8; O2SAT 99
== END 2022-12-25 21:27 | disposition home or self-care (01) ==
LOC: ER 19:35
DX: S80.01XA Contusion of right knee, initial encounter (principal)
CPT/HCPCS: 96372; 99284

== ENCOUNTER 2024-02-25 06:50 | Emergency (ER) | payer SELFPAY ==
[2024-02-25] MEDS ORDERED: BENZONATATE 100 MG CAP PO ONE (07:26)
[2024-02-25] MEDS ORDERED: NA CHLORIDE 0.9% 1,000 ML ONE (07:26)
[2024-02-25 08:16] LABS: Absolute Eosinophils 0.1 K/uL (0-0.5); Absolute Lymphocytes (CBC) 0.7 K/uL (0.7-4.9); Absolute Monocytes 0.6 K/uL (0.1-1.3); Absolute Neutrophil 9.1 K/uL (1.8-8.0); Basophils % 0.5 % (0-1.3); Eosinophils % 1.4 % (0-4.4); Hematocrit 38.4 % (36.0-45.0); Hemoglobin 13.2 g/dL (12.0-15.0); Lymphocytes % 6.7 % (15.3-44.8); MCH 29.5 pg (27.0-35.0); MCHC 34.3 g/dL (32.0-36.0); MCV 85.8 fL (80-100); MPV 9.8 fL (7.6-11.3); Monocytes % 5.3 % (3.3-12.3); Neutrophils % 86.1 % (41.7-73.7); Nucleated Red Blood Cells % 0.1 % (0-0); Platelets 254 thou/uL (152-406); RBC Red Blood Cell Count 4.48 M/uL (3.86-4.86); Red Cell Distribution Width 14.8 % (12.1-15.2)
[2024-02-25 08:28] LABS: Anion Gap 12.6 mEq/L (5.0-15.0); Potassium 3.6 mEq/L (3.5-5.1)
--- NOTE | 2024-02-25 08:31 | RAD REPORT ---
EXAM: Chest Pa And Lat (2 Views) HISTORY: COUGH COMPARISON: 09/27/2019 FINDINGS: LUNGS/PLEURA: The lungs are clear. No pleural effusions or pneumothorax. No pulmonary edema. MEDIASTINUM: The mediastinal silhouette is within normal limits. CARDIAC: The cardiac silhouette is within normal limits. UPPER ABDOMEN: No significant abnormality. BONES: No acute fracture. LINES/TUBES/OTHER: N/A IMPRESSION: No evidence of acute cardiopulmonary disease.
[2024-02-25 08:36] LABS: SARS-CoV-2 Antigen CONTROL BLUE LINE VIS/BG OK; SARS-CoV-2 Antigen Rapid Res Negative (Negative)
--- NOTE | 2024-02-25 08:54 | EDPHYS ---
Physician Documentation [facility] Name: Darling Sorenson Age: 33 yrs Sex: Female : 1990 Arrival Date: 02/25/2024 Time: 06:50 Bed 4 Private MD: ED Physician Agapito Suarez HPI: 02/24 07:12 This 33 yrs old Female presents to ER via Ambulatory with complaints of Flu bo1 Symptoms, Fever, Cough, Congestion. 07:12 The patient reports fever, Not checked at home, had taken some Tylenol. Onset: The bo1 symptoms/episode began/occurred gradually, Since Saturday, this past weekend. Modifying factors: there are no obvious modifying factors, The patient has recently traveled, within the , To [place]. Associated signs and symptoms: Pertinent positives: cough, that has streaks of blood. Severity of symptoms: At their worst the symptoms were mild this morning, last night. The patient has experienced similar episodes in the past, Once a year perhaps. No other known ill contact. LMP on Jan 29.. Historical: - Allergies: 07:08 Amoxicillin; aa5 07:08 PENICILLINS; aa5 - Home Meds: 07:08 None [Active]; aa5 - PMHx: 07:08 None; aa5 - Immunization history:: Adult Immunizations unknown. - Infectious Disease History:: Denies. - Social history:: Smoking status: Patient denies any tobacco usage or history of. ROS: 08:48 Constitutional: Negative for weight loss bo1 08:48 Constitutional: Positive for fever, malaise, 08:48 Neck: Negative for pain at rest, 08:48 Cardiovascular: Negative for chest pain, 08:48 Respiratory: Positive for cough, Blood tinged, Negative for shortness of breath, 08:48 Abdomen/GI: Negative for abdominal pain, nausea and vomiting, 08:48 MS/extremity: Negative for pain, swelling, 08:48 Skin: Negative for rash, 08:48 All other systems are negative, Exam: 08:49 Constitutional: This is a well developed, well nourished patient who is awake, alert, bo1 and in no acute distress. 08:49 Constitutional: The patient appears alert, awake, comfortable, non-toxic, 08:49 Head/face: Exam is negative for acute changes, 08:49 ENT: Exam is negative for acute changes, TM's: are normal, no acute changes, Nose: is normal, no acute changes, Posterior pharynx: is normal, no acute changes, exudate, is not appreciated, 08:49 Neck: External neck: is normal, no acute changes, swelling, is not appreciated, 08:49 Cardiovascular: Rate: tachycardic, Rhythm: regular, Pulses: no pulse deficits are appreciated, 08:49 Respiratory: the patient does not display signs of respiratory distress, Respirations: normal, no acute changes, Breath sounds: are clear throughout, decreased breath sounds, are located in both bases, 08:49 Abdomen/GI: Inspection: abdomen appears normal, Palpation: soft, nontender, 08:49 Musculoskeletal/extremity: Calves: are non-tender, 08:49 Skin: no rash present. Warm and dry. Vital Signs: 07:04 BP 145 / 95; Pulse 115; Resp 18 S; Temp 99.5(O); Pulse Ox 99% on R/A; Weight 99.79 kg aa5 (R); Height 5 ft. 3 in. (R); 07:04 Body Mass Index 38.97 (99.79 kg, 160.02 cm) aa5 MDM: 07:05 Medical Screening Exam initiated bo1 08:51 Differential diagnosis: viral Infection, bacterial infection, URI, bronchitis. Data bo1 reviewed: vital signs, lab test result(s), CBC, electrolytes, Flu: Other viral screens, radiologic studies, plain films, No pneumonia per rad reading. ED course: Pt is doing well and afebrile. 02/24 07:15 Order name: Basic Metabolic Panel; Complete Time: 08:40 bo1 02/24 07:15 Order name: CBC with Diff bo1 02/24 07:16 Order name: SARS-COV-2 Antigen Rapid; Complete Time: 08:40 bo1 02/24 07:16 Order name: Flu; Complete Time: 08:40 bo1 02/24 07:16 Order name: RSV; Complete Time: 08:40 bo1 02/24 07:15 Order name: Chest Pa And Lat (2 Views) XRAY; Complete Time: 08:40 bo1 02/24 07:15 Order name: IV Saline Lock; Complete Time: 08:06 bo1 02/24 07:15 Order name: Labs collected and sent; Complete Time: 08:06 bo1 Administered Medications: 07:30 Drug: Tessalon Perle PO 200 mg PO once Route: PO; bp 09:12 Follow up: Response: No adverse reaction bp 08:02 Drug: NS 0.9% IV 1000 ml IV at 125 ml/hr continuous Route: IV; Rate: 125 ml/hr; Site: bp right forearm; 09:12 Follow up: IV Status: Completed infusion bp 09:00 Drug: AZITHromycin PO 500 mg PO once Route: PO; bp 09:12 Follow up: Response: No adverse reaction bp Disposition Summary: 02/25/24 08:53 Discharge Ordered Notes: Location: Home bo1 Problem: new bo1 Symptoms: are unchanged bo1 Condition: Stable bo1 Diagnosis - Cough bo1 - Acute bronchitis, unspecified bo1 - Fever, unspecified bo1 Followup: bo1 - With: Private Physician - When: Upon discharge from the Emergency Department - Reason: Recheck today's complaints, Continuance of care Discharge Instructions: - Discharge Summary Sheet bo1 - Acute Bronchitis, Adult bo1 - Fever, Adult bo1 - Cough, Adult bo1 Forms: - Work release form aa5 - Medication Reconciliation Form bo1 - Antibiotic Education bo1 - Prescription Opioid Use bo1 - Patient Portal Instructions bo1 - Leadership Thank You Letter bo1 Prescriptions: - azithromycin 500 mg Oral tablet - take 1 tablet ORAL route daily for 7 days; 7 tablet; Refills: 0, Product bo1 Selection Permitted - Tessalon Perles 100 mg Oral capsule - take 1 capsule ORAL route every 8 hours As needed PRN COUGH; 15 capsule; bo1 Refills: 0, Product Selection Permitted Signatures: Dispatcher [employer] Mariza Guevara RN RN aa5 Nakul Chapa RN RN bp Agapito Suarez MD MD bo1 Corrections: (The following items were deleted from the chart) 07:09 07:08 PMHx: diabetes mellitus; aa5 aa5 07:09 07:08 PMHx: Hypertension; aa5 aa5 07:16 07:16 SARS-COV-2 Antigen Rapid+I.LAB.BRZ ordered. EDMS EDMS 07:16 07:16 Influenza Screen (A \T\ B)+BA.LAB.BRZ ordered. EDMS EDMS 07:16 07:16 Respiratory Syncytial Virus Ag+BA.LAB.BRZ ordered. EDMS EDMS
--- NOTE | 2024-02-25 08:54 | ER ---
Nurse's Notes [facility] Name: Darling Sorenson Age: 33 yrs Sex: Female : 1990 Arrival Date: 02/25/2024 Time: 06:50 Bed 4 Private MD: Diagnosis: Cough;Acute bronchitis, unspecified;Fever, unspecified Presentation: 02/24 07:04 Chief complaint: Patient states: cough, body aches, decreased appetite, chills, and aa5 runny nose since Saturday. Coronavirus screen: cough unrelated to allergies, fever, muscle pain, runny nose. Ebola Screen: Patient denies travel to an Ebola-affected area in the 21 days before illness onset. Initial Sepsis Screen: Does the patient meet any 2 criteria? HR > 90 bpm. Does the patient have a suspected source of infection? No. Patient's initial sepsis screen is negative. Risk Assessment: Do you want to hurt yourself or someone else? Patient reports no desire to harm self or others. Onset of symptoms was February 22, 2024. 07:04 Acuity: OSCAR 4 aa5 07:04 Method Of Arrival: Ambulatory aa5 Triage Assessment: 07:10 General: Appears in no apparent distress. uncomfortable, ill, Behavior is calm, bp cooperative, appropriate for age. Pain: Denies pain. EENT: Reports nasal congestion. Neuro: No deficits noted. Cardiovascular: Rhythm is sinus rhythm. Respiratory: Breath sounds are clear bilaterally. GI: No signs and/or symptoms were reported involving the gastrointestinal system. : No signs and/or symptoms were reported regarding the genitourinary system. Derm: No deficits noted. Musculoskeletal: No deficits noted. Historical: - Allergies: 07:08 Amoxicillin; aa5 07:08 PENICILLINS; aa5 - Home Meds: 07:08 None [Active]; aa5 - PMHx: 07:08 None; aa5 - Immunization history:: Adult Immunizations unknown. - Infectious Disease History:: Denies. - Social history:: Smoking status: Patient denies any tobacco usage or history of. Screenin:10 [facility] ED Fall Risk Assessment (Adult) History of falling in the last 3 months, bp including since admission No falls in past 3 months (0 pts) Confusion or Disorientation No (0 pts) Intoxicated or Sedated No (0 pts) Impaired Gait No (0 pts) Mobility Assist Device Used No (0 pt) Altered Elimination No (0 pt) Score/Fall Risk Level 0 - 2 = Low Risk. Abuse screen: Denies threats or abuse. Denies injuries from another. Nutritional screening: No deficits noted. Tuberculosis screening: No symptoms or risk factors identified. Assessment: 07:10 General: Appears in no apparent distress. obese, Behavior is calm, cooperative, bp appropriate for age. Pain: Denies pain. Neuro: No deficits noted. Cardiovascular: Patient's skin is warm and dry. Respiratory: Airway is patent Respiratory effort is even, unlabored. Respiratory: Breath sounds are clear bilaterally. GI: No signs and/or symptoms were reported involving the gastrointestinal system. : No signs and/or symptoms were reported regarding the genitourinary system. EENT: No deficits noted. Derm: No deficits noted. Musculoskeletal: No deficits noted. Vital Signs: 07:04 BP 145 / 95; Pulse 115; Resp 18 S; Temp 99.5(O); Pulse Ox 99% on R/A; Weight 99.79 kg aa5 (R); Height 5 ft. 3 in. (R); 07:04 Body Mass Index 38.97 (99.79 kg, 160.02 cm) aa5 ED Course: 06:54 Patient arrived in ED. gm2 07:04 Nakul Chapa, RN is Primary Nurse. bp 07:04 Arm band placed on. aa5 07:05 Agapito Suarez MD is Attending Physician. bo1 07:08 Triage completed. aa5 07:10 Patient has correct armband on for positive identification. Provided Education on: N'A. bp 07:10 No provider procedures requiring assistance completed. bp 08:02 Initial lab(s) drawn, by me, sent to lab. COVID swab sent to lab. Flu and/or RSV swab bp sent to lab. Inserted saline lock: 20 gauge in right forearm, using aseptic technique. Blood collected. Flushed with 10 mL NS. 08:28 Chest Pa And Lat (2 Views) XRAY In Process Unspecified. EDMS 09:26 IV discontinued, intact, bleeding controlled, No redness/swelling at site. Pressure bp dressing applied. Administered Medications: 07:30 Drug: Tessalon Perle PO 200 mg PO once Route: PO; bp 09:12 Follow up: Response: No adverse reaction bp 08:02 Drug: NS 0.9% IV 1000 ml IV at 125 ml/hr continuous Route: IV; Rate: 125 ml/hr; Site: bp right forearm; 09:12 Follow up: IV Status: Completed infusion bp 09:00 Drug: AZITHromycin PO 500 mg PO once Route: PO; bp 09:12 Follow up: Response: No adverse reaction bp Outcome: 08:53 Discharge ordered by MD. tai 09:26 Discharged to home ambulatory, bp 09:26 Condition: stable 09:26 Discharge instructions given to patient, Instructed on discharge instructions, follow up and referral plans. medication usage, Demonstrated understanding of instructions, follow-up care, medications, Prescriptions given X 2, :27 Patient left the ED. bp Signatures: Dispatcher [employer] EDMariza Delaney RN RN aaNakul Escobedo RN RN Sharon Barcenas 2 Erick, MD SHEA Altman bo1 Corrections: (The following items were deleted from the chart) 07:09 07:08 PMHx: diabetes mellitus; aa5 aa5 07:09 07:08 PMHx: Hypertension; aa5 aa5
[2024-02-25] MEDS ORDERED: AZITHROMYCIN 250 MG TAB ONE (09:06)
[2024-02-25 09:31] LABS: Blood Morphology Comment NOT SEEN (NOT SEEN); Platelet Estimate ADEQ; White Blood Cell Scan OK (OK)
[2024-02-25 09:36] VITALS: BP 145/95; TEMP 99.5; O2SAT 99
== END 2024-02-25 09:27 | disposition home or self-care (01) ==
LOC: ER 06:50
DX: J20.9 Acute bronchitis, unspecified (principal); R05.9 Cough, unspecified; Z11.52 Encounter for screening for COVID-19
CPT/HCPCS: 36415; 71046; 80048; 85025; 87804; 87807; 87811; 96360; 99284; J7030

== ENCOUNTER 2024-06-17 16:17 | Emergency (ER) | payer SELFPAY ==
--- OUTSIDE RECORDS SUMMARY | 2024-06-17 16:22 | XMS REPORT | Continuity of Care Document ---
Author Name Unknown Address [address] [place] [address] [address] [place] [address] [facility] Address [address] [place] [address]. [address] [place] [address] Care Team Providers Care Supervisor Photostat Name Role Phone MARCELLO REYES Primary Care Physician ETHAN Juarez Attending Clinician SUKHDEV Martin Attending Clinician Unavail able Doctor Unassigned, [place] Attending Clinician U navailMARCELLO Coates Attending Clinician Unavail le Payers Payer Name Policy Type Policy Number Effective Date Expirati on Date Source [facility] [id number] 2020 00:00:00 Problems Condition Name Condition Details Condition Category Status Onset Date Resolution Date Last Treatment Date Treating Clinician Comments Source Screening examinatio n for STD (sexually transmitte d disease) Screening examinatio n for STD (sexually transmitte d disease) Disease Active 10-13 00:00: 00 [facility] Intramural leiomyoma of uterus Intramural leiomyoma of uterus Disease Active 10-13 00:00: 00 [facility] Abnormal glandular Papanicola ou smear of cervix Abnormal glandular Papanicola ou smear of cervix Disease Active 10-13 00:00: 00 [facility] Pain pelvic Pain pelvic Disease Active 10-13 00:00: 00 [facility] Status post delivery Status post delivery Disease Active 09-06 00:00: 00 Overview: Formattin g of this note might be different from the original. ICD10 Diagnosis Term [employer] Professional [employer] [facility] Allergies, Adverse Reactions, Alerts Allergy Name Allergy Type Status Severity Reaction(s) Onset Date Inactive Date Treating Clinician Comments Source Amoxicil coreen Propensi ty to adverse reaction s Active Unknown - See comments 2017-03 00:00: 00 [facility] AMOXICIL COREEN DRUG INGREDI Active Unknown-Cmnt 2017-03 00:00: 00 [facility] Penicill ins Propensi ty to adverse reaction s Active Rash 09-05 00:00: 00 [facility] PENICILL INS Drug Class Active Rash 09-05 00:00: 00 [facility] Social History Social Habit Start Date Stop Date Quantity Comments Source Exposure to SARS-CoV-2 (event) Not sure [facility] Tobacco use and exposure 2020-11-10 00:00:00 2020-11-10 00:00:00 Never used [facility] Alcohol intake 2020-11-10 00:00:00 2020-11-10 00:00:00 Ex-drinker (finding) [facility] Sex Assigned At 1990 00:00:00 1990 00:00:00 [facility] Smoking Status Start Date Stop Date Source Never smoker [facility] Medications Ordered Medication Name Filled Medication Name Start Date Stop Date Current Medication? Ordering Clinician Indication Dosage Frequency Signature (SIG) Comments Components Source No known medications No Un patel [facility] Procedures Procedure Date / Time Performed Performing Clinicia n Source DISCLOSURE AND CONSENT, MEDICAL AND SURGICAL PROCEDURES 2020-11-10 05:01:00 Doctor Unassigned, [place] [facility] Encounters Start Date/Time End Date/Time Encounter Type Admission Type Attending Clinicians Care Facility Care Department Encounter ID Source 2024-05-21 10:25:34 2024-05-21 10:25:34 Outpatient [facility] [id number] Sean Olivera 2024-05-20 14:53:39 2024-05-20 14:53:39 Outpatient [facility] [id number] Sean Olivera 2023-05-22 13:30:00 2023-05-22 13:30:00 Outpatient ETHAN [facility] [id number] [facility] 2023-04-18 16:00:00 2023-04-18 16:00:00 Outpatient R SUKHDEV [facility] [id number] [facility] 2022-12-28 09:15:00 2022-12-28 09:15:00 Outpatient R ETHAN [facility] [id number] [facility] 2020-11-10 13:20:00 2020-11-10 13:20:00 Outpatient [facility] [id number] [facility] 2020-11-10 00:00:00 2020-11-10 00:00:00 Orders Only Doctor Unassigned, [place] [facility] [id number] [facility] 2020-10-26 07:00:00 2020-10-26 07:00:00 Outpatient MARCELLO [facility] [id number] [facility] 2020-10-13 08:45:00 2020-10-13 08:45:00 Outpatient MARCELLO OLIVAREZ [facility] [id number] [facility]
--- NOTE | 2024-06-17 16:47 | EDPHYS ---
Physician Documentation [facility] Name: Darling Sorenson Age: 33 yrs Sex: Female : 1990 Arrival Date: 06/17/2024 Time: 16:17 Bed IW9 Private MD: ED Physician Eagle Connell HPI: 06/17 16:49 This 33 yrs old Female presents to ER via Ambulatory with complaints of Neck ec2 Problem. 16:49 Patient arrives today d/t concern for neck swelling. reports that she noticed some ec2 swelling to the back of the neck. no fall/injuries/trauma. reports she has had previous lumps in that region. no fevers, chills, n/v/d. Historical: - Allergies: 16:44 Amoxicillin; iw 16:44 PENICILLINS; iw - Home Meds: 16:47 None [Active]; iw - PMHx: 16:47 None; iw - PSHx: 16:47 section; ectopic ; iw - Infectious Disease History:: Denies. - Social history:: Smoking status: Patient denies any tobacco usage or history of. ROS: 16:51 Constitutional: as per hpi ec2 Exam: 16:51 Constitutional: GEN: NAD Head: atraumatic Eyes: EOMI Ears: External ears are ec2 normal. CV: regular rate LUNGS: no respiratory distress ABD: non-distended SKIN: abscess noted to the back of the neck, trace fluctuance, easily expressible with purulent fluid noted. No significant erythema appreciated MSK: no evidence of trauma Vital Signs: 16:47 BP 142 / 102; Pulse 86; Resp 16; Temp 98.4; Pulse Ox 97% on R/A; Weight 104.33 kg; iw Height 5 ft. 3 in. ; 16:47 Body Mass Index 40.74 (104.33 kg, 160.02 cm) iw MDM: 16:46 Medical Screening Exam initiated ec2 16:51 Data reviewed: vital signs, nurses notes. ED course: Patient arrives today for ec2 evaluation of neck swelling. Examination yields skin findings as above. I was able to express some of the fluid out without issue, purulent fluid drained. Restart patient on clindamycin and have her follow-up with primary care. Return precautions given.. Administered Medications: No medications were administered Disposition Summary: 06/17/24 16:46 Discharge Ordered Notes: Location: Home ec2 Condition: Stable ec2 Diagnosis - Cutaneous Abscess of the Neck ec2 Followup: ec2 - With: Private Physician - When: - Reason: Re-evaluation by your physician Discharge Instructions: - Discharge Summary Sheet ec2 - Skin Abscess, [id number] ec2 Forms: - Medication Reconciliation Form ec2 - Antibiotic Education ec2 - Prescription Opioid Use ec2 - Patient Portal Instructions ec2 - Leadership Thank You Letter ec2 Prescriptions: - Clindamycin HCl 150 mg Oral capsule - take 3 capsule ORAL route every 8 hours for 7 days; 63 capsule; Refills: 0, ec2 Product Selection Permitted Signatures: Terri Coronado RN RN iw Eagle Connell MD MD ec2
--- NOTE | 2024-06-17 16:47 | ER ---
[facility] Name: Darling Sorenson Age: 33 yrs Sex: Female : 1990 Arrival Date: 06/17/2024 Time: 16:17 Bed IW9 Private MD: Diagnosis: Cutaneous Abscess of the Neck Presentation: 06/17 16:44 Chief complaint: Patient states: knot on back of neck for a few days. Coronavirus iw screen: At this time, the client does not indicate any symptoms associated with coronavirus-19. Initial Sepsis Screen: Does the patient meet any 2 criteria? No. Patient's initial sepsis screen is negative. Does the patient have a suspected source of infection?. Risk Assessment: Do you want to hurt yourself or someone else? Patient reports no desire to harm self or others. 16:44 Method Of Arrival: Ambulatory iw 16:44 Acuity: OSCAR 4 iw Historical: - Allergies: 16:44 Amoxicillin; iw 16:44 PENICILLINS; iw - Home Meds: 16:47 None [Active]; iw - PMHx: 16:47 None; iw - PSHx: 16:47 section; ectopic ; iw - Infectious Disease History:: Denies. - Social history:: Smoking status: Patient denies any tobacco usage or history of. Assessment: 16:47 General: Appears in no apparent distress. uncomfortable, Behavior is calm, cooperative. iw Pain: Complains of pain in neck. Neuro: Level of Consciousness is awake, alert, obeys commands, Oriented to person, place, time, situation, Moves all extremities. Full function. Cardiovascular: Patient's skin is warm and dry. Respiratory: Respiratory effort is even, unlabored, Respiratory pattern is regular, symmetrical. Derm: Abscess located on back of neck. Musculoskeletal: Range of motion: intact in all extremities. Vital Signs: 16:47 BP 142 / 102; Pulse 86; Resp 16; Temp 98.4; Pulse Ox 97% on R/A; Weight 104.33 kg; iw Height 5 ft. 3 in. ; 16:47 Body Mass Index 40.74 (104.33 kg, 160.02 cm) iw ED Course: 16:22 Patient arrived in ED. cj3 16:38 Eagle Connell MD is Attending Physician. ec2 16:44 Triage completed. iw 17:08 Terri Coronado, RN is Primary Nurse. iw Administered Medications: No medications were administered Medication: 16:48 VIS not applicable for this client. iw Outcome: 16:46 Discharge ordered by . ec2 17:07 Discharged to home ambulatory, iw 17:07 Condition: good 17:07 Discharge instructions given to patient, Instructed on discharge instructions, follow up and referral plans. medication usage, Demonstrated understanding of instructions, follow-up care, medications, Prescriptions given X 1, 17:08 Patient left the ED. iw Signatures: Terri Coronado, RN RN iw Eagle Connell MD MD ec2 Sofi Overton cj3
[2024-06-17 18:36] VITALS: BP 142/102; TEMP 98.4; O2SAT 97
== END 2024-06-17 17:08 | disposition home or self-care (01) ==
LOC: ER 16:17
DX: L02.11 Cutaneous abscess of neck (principal)

== ENCOUNTER 2024-10-31 21:14 | Inpatient (IN) | payer SELFPAY ==
--- OUTSIDE RECORDS SUMMARY | 2024-10-31 21:20 | XMS REPORT | Continuity of Care Document ---
Author Name Unknown Address [address] [facility]. [address] [place] [address] [facility] [place] Address [address] [place] [address]. [address] [place] [address] Care Team Providers Care A/C Tech Name Role Phone MARCELLO REYES Primary Care Physician ETHAN Juarez Attending Clinician SUKHDEV Martin Attending Clinician Unavail able Doctor Unassigned, [place] Attending Clinician U navMARCELLO Ontiveros Attending Clinician Sharmila le Payers Payer Name Policy Type Policy Number Effective Date Expirati on Date Source [facility] [id number] 2020 00:00:00 Problems Condition Name Condition Details Condition Category Status Onset Date Resolution Date Last Treatment Date Treating Clinician Comments Source Screening examinatio n for STD (sexually transmitte d disease) Screening examinatio n for STD (sexually transmitte d disease) Disease Active 10-13 00:00: 00 [facility] Intramural leiomyoma of uterus Intramural leiomyoma of uterus Disease Active 10-13 00:00: 00 [facility] Abnormal glandular Papanicola ou smear of cervix Abnormal glandular Papanicola ou smear of cervix Disease Active 10-13 00:00: 00 [facility] Pain pelvic Pain pelvic Disease Active 10-13 00:00: 00 [facility] Status post delivery Status post delivery Disease Active 09-06 00:00: 00 Overview: Formattin g of this note might be different from the original. 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 [facility] Allergies, Adverse Reactions, Alerts Allergy Name Allergy Type Status Severity Reaction(s) Onset Date Inactive Date Treating Clinician Comments Source Amoxicil coreen Propensi ty to adverse reaction s Active Unknown - See comments 2017-03 00:00: 00 [facility] AMOXICIL COREEN DRUG INGREDI Active Unknown-Cmnt 2017-03 00:00: 00 [facility] Penicill ins Propensi ty to adverse reaction s Active Rash 09-05 00:00: 00 [facility] PENICILL INS Drug Class Active Rash 09-05 00:00: 00 [facility] Social History Social Habit Start Date Stop Date Quantity Comments Source Exposure to SARS-CoV-2 (event) Not sure [facility] Tobacco use and exposure 2020-11-10 00:00:00 2020-11-10 00:00:00 Never used [facility] Alcohol intake 2020-11-10 00:00:00 2020-11-10 00:00:00 Ex-drinker (finding) [facility] Sex Assigned At 1990 00:00:00 1990 00:00:00 [facility] Smoking Status Start Date Stop Date Source Never smoker [facility] Medications Ordered Medication Name Filled Medication Name Start Date Stop Date Current Medication? Ordering Clinician Indication Dosage Frequency Signature (SIG) Comments Components Source No known medications No Un patel [facility] Procedures Procedure Date / Time Performed Performing Clinicia n Source DISCLOSURE AND CONSENT, MEDICAL AND SURGICAL PROCEDURES 2020-11-10 05:01:00 Doctor Unassigned, [place] [facility] Encounters Start Date/Time End Date/Time Encounter Type Admission Type Attending Clinicians Care Facility Care Department Encounter ID Source 2024-05-21 10:25:34 2024-05-21 10:25:34 Outpatient [facility] [id number] Sean Olivera 2024-05-20 14:53:39 2024-05-20 14:53:39 Outpatient [facility] [id number] Sean Olivera 2023-05-22 13:30:00 2023-05-22 13:30:00 Outpatient ETHAN CUMMINS [facility] [id number] [facility] 2023-04-18 16:00:00 2023-04-18 16:00:00 Outpatient R SUKHDEV QUINTANA [facility] [id number] [facility] 2022-12-28 09:15:00 2022-12-28 09:15:00 Outpatient R ETHAN STRATTON [facility] [id number] [facility] 2020-11-10 13:20:00 2020-11-10 13:20:00 Outpatient R [facility] [id number] [facility] 2020-11-10 00:00:00 2020-11-10 00:00:00 Orders Only Doctor Unassigned, [place] [facility] [id number] [facility] 2020-10-26 07:00:00 2020-10-26 07:00:00 Outpatient MARCELLO OLIVAREZ [facility] [id number] [facility] 2020-10-13 08:45:00 2020-10-13 08:45:00 Outpatient MARCELLO OLIVAREZ [facility] [id number] [facility]
[2024-10-31 22:07] LABS: Absolute Lymphocytes (CBC) 1.6 K/uL (0.7-4.9); Hematocrit 36.6 % (36.0-45.0); Hemoglobin 12.8 g/dL (12.0-15.0); MCH 29.4 pg (27.0-35.0); MCHC 35.0 g/dL (32.0-36.0); MCV 84.0 fL (80-100); MPV 9.7 fL (7.6-11.3); Nucleated RBC Absolute Count 0.0 (0-0); Nucleated Red Blood Cells % 0.0 % (0-0); RBC Red Blood Cell Count 4.35 M/uL (3.86-4.86); White Blood Count 12.10 thou/uL (4.3-10.9)
[2024-10-31 22:16] LABS: PT Prothrombin Time 15.1 SECONDS (10-13.0); Protime INR 1.35
[2024-10-31 22:17] LABS: PTT, Activated Partial Thromb 30.4 SECONDS (27.2-37.4)
--- NOTE | 2024-10-31 22:17 | RAD REPORT ---
EXAMINATION: ONE VIEW CHEST XR CLINICAL INDICATION: Female, 34 years old.,altered mental status TECHNIQUE: Frontal chest projection is submitted. Examination is limited by patient positioning and t echnique. COMPARISON: 02/25/2024 FINDINGS: The lungs show crowding of the bronchovascular markings at the emmy, although suboptimal inspiratory effort somewhat limits evaluation. No pneumothorax or sizable effusion. The heart is normal in size. Mediastinal contours are unremarkable. IMPRESSION: No acute intrathoracic abnormalities.
--- NOTE | 2024-10-31 22:25 | RAD REPORT ---
EXAM: CT Head Brain Wo Cont HISTORY: AMS COMPARISON: 07/24/2008 TECHNIQUE: Multiple contiguous axial images were obtained for a CT of the brain without contrast. Sag ittal and coronal reformats were performed. One or more of the following dose reduction techniques were used: Automated exposure control, adjus tment of the mA and kV according to patient size, and iterative reconstruction. Unless otherwise specified, incidental findings do not require dedicated imaging follow-up. FINDINGS: No evidence of hydrocephalus, intracranial hemorrhage, or extra-axial fluid collection. The brain is normal in morphology. The calvarium is intact. The visualized paranasal sinuses and mastoid air cells are essentially clear . IMPRESSION: No evidence of acute intracranial abnormality.
[2024-10-31 22:36] LABS: ALT/SGPT 32 U/L (13-56); AST/SGOT 19 U/L (15-37); Albumin 3.7 g/dL (3.4-5.0); Albumin/Globulin Ratio 1.1 (1.1-1.8); Alkaline Phosphatase 82 U/L (45-117); Anion Gap 12.0 mEq/L (5.0-15.0); BUN Blood Urea Nitrogen 8 mg/dL (7-18); Bilirubin Indirect, Calculated 0.1 mg/dL (0.2-0.8); Globulin 3.4 g/dL (2.3-3.5); Glucose Level 94 mg/dL (74-106); Potassium 3.0 mEq/L (3.5-5.1)
[2024-10-31] MEDS ORDERED: NA CHLORIDE 0.9% 1,000 ML ONE (22:40)
[2024-10-31 22:43] LABS: NT PRO-BNP 128.0 pg/mL (<125); Troponin High Sensitivity 4.9 pg/mL (<58.9)
[2024-10-31 23:01] LABS: Urine Culture Reflex Order NOT NEEDED; Urine Microscopic Reflex YN ORDER UMIC
[2024-10-31 23:14] LABS: METHAMPHETAM NEGATIVE (NEGATIVE); THC Cannibis NEGATIVE (NEGATIVE)
[2024-11-01] MEDS ORDERED: POTASSIUM CL SA 10 MEQ TAB PO ONE (00:38)
[2024-11-01] MEDS ORDERED: KCL 20 MEQ/100 mL IVPB 100 ML IV ONE (00:39)
[2024-11-01] MEDS ORDERED: NA CHLORIDE 0.9% 1,000 ML ONE (00:39)
--- NOTE | 2024-11-01 00:48 | P.HP ---
Certification for Inpatient With expected LOS: >2 Midnights Patient will require the following post-hospital care: None Practitioner: I am a practitioner with admitting privileges, knowledge of patient current condition, hospital course, and medical plan of care. Services: Services provided to patient in accordance with Admission requirements found in Title 42 Section 412.3 of the Code of Federal Regulations Patient History Date of Service: 11/01/24 Reason for admission: Confusion History of Present Illness: 34-year-old female with no prior past medical history presenting with confusion and altered mental status. Patient was brought by EMS after family members have called. Positive history of cocaine use in the last 2 days. On arrival of EMS patient was confused patient was given Versed. On arrival in the ED patient is still confused, vital signs were stable, afebrile, head CT shows no acute intracranial pathology, chest x-ray was clear. Laboratory workup shows WBC of 12,000 with mild right shift, BMP remarkable for potassium of 3.0, lactic acid elevated at 2.6, serum alcohol level of 11, urine drug screen was positive for benzos as well as cocaine, THC was negative. Urinalysis positive for ketones but no WBC. Allergies amoxicillin [Amoxicillin] Allergy (Verified 05/28/13 04:54) Itching/Hives/Rash Penicillins Allergy (Unverified 07/15/14 04:30) Unknown Home Medications: NK [No Home Meds] 05/28/13 - Past Medical/Surgical History Diabetic: No Past Medical History: Patient denies medical history -: - Family History Family History: Reviewed- Non-Contributory - Social History Smoking Status: Unknown if ever smoked Smoking therapy provided: No Patient receptive to therapy: No Alcohol use: No CD- Drugs: No Caffeine use: Yes Place of Residence: Home Review of Systems is unable to be obtained (Due to confusion) Physical Examination - Physical Exam General: Alert, In no apparent distress, Confused, Delirious HEENT: Atraumatic, Normocephalic, PERRLA, EOMI Neck: 2+ carotid pulse no bruit, JVD not distended Respiratory: Clear to auscultation bilaterally, Normal air movement Cardiovascular: Normal pulses, Regular rate/rhythm, Normal S1 S2 Gastrointestinal: Normal bowel sounds, Soft and benign, Non-distended, No ascites Musculoskeletal: No clubbing, No swelling Integumentary: No rashes, No breakdown, No significant lesion Neurological: Normal speech, Normal strength at 5/5 x4 extr, Normal tone - Studies Laboratory Data (last 24 hrs) 10/31/24 10/31/24 10/31/24 21:49 21:49 21:49 WBC 12.10 H Hgb 12.8 Hct 36.6 Plt Count 284 PT 15.1 H INR 1.35 APTT 30.4 Sodium 141 Potassium 3.0 L BUN 8 Creatinine 0.74 Glucose 94 Total Bilirubin 0.3 AST 19 ALT 32 Alkaline Phosphatase 82 Assessment and Plan - Problems (Diagnosis) (1) Acute encephalopathy Current Visit: Yes Status: Acute - Plan Impression Acute encephalopathymay be due to polysubstance abusewith cocaine/alcohol/Benadryl use Polysubstance abuse with cocaine abuse Hypokalemia Alcohol abuse Lactic acidemia Plan Will admit patient to the ICU Will do neurochecks every 4 Start gentle IV fluid with LR Close banana bag Ativan as needed Follow mental status closely Follow lactic acid trend Mild elevated WBC. No evidence of infection, follow trend for now may be reactive Possible still stay for more than 24 hours Addendum2 hours after initial examination patient again seen she is more awake and conversant now though still feels weak. She complained of chest pain 4 days ago. Both state the chest pain has resolved now. She is unsure how she got to the emergency room. She states she has been having insomnia. And has used Benadryl yesterday. She denies any illicit drug use. She admits to occasional alcohol use and has drank yesterday - Advance Directives Does patient have a Living Will: No Does patient have a Durable POA for Healthcare: No
[2024-11-01] MEDS ORDERED: ONDANSETRON 4 MG/2 ML VIAL IV PRN (00:49)
[2024-11-01] MEDS ORDERED: ALBUTEROL 2.5 MG/3 ML NEB SOL NEB PRN ×2 (00:49→07:16)
[2024-11-01] MEDS ORDERED: LORazepam 2 MG/ML VIAL IV PRN (00:52)
[2024-11-01] MEDS ORDERED: HYDRALAZINE HCL 20 MG/ML VIAL IV PRN (00:52)
[2024-11-01] MEDS: D5 0.9 NS 1,000 ML IV SCH (01:00)
--- NOTE | 2024-11-01 01:02 | ER ---
Nurse's Notes [facility] Name: Darling Sorenson Age: 34 yrs Sex: Female : 1990 Arrival Date: 10/31/2024 Time: 21:14 Bed 2 Private MD: Diagnosis: Cocaine abuse;Altered mental status, unspecified Presentation: 10/31 21:37 Chief complaint: EMS states: Family called stating pt was unresponsive. Upon arrival pt vc1 was unable to respond. Boyfriend states that pt had been doing cocaine since yesterday and today she took a few benadryl to sleep. Coronavirus screen: fever, At this time, the client does not indicate any symptoms associated with coronavirus-19. Ebola Screen: Patient negative for fever greater than or equal to 101.5 degrees Fahrenheit, and additional compatible Ebola Virus Disease symptoms Patient denies exposure to infectious person. Patient denies travel to an Ebola-affected area in the 21 days before illness onset. No symptoms or risks identified at this time. Initial Sepsis Screen: Does the patient meet any 2 criteria? RR > 20 per min. Altered Mental Status. HR > 90 bpm. Yes Does the patient have a suspected source of infection? No. Patient's initial sepsis screen is negative. Risk Assessment: Do you want to hurt yourself or someone else? Patient reports no desire to harm self or others. Onset of symptoms was October 31, 2024 at 19:30. 21:37 Method Of Arrival: EMS: [facility] vc1 21:37 Acuity: OSCAR 2 vc1 21:37 Care prior to arrival: IV initiated. 20 GA, in the left hand. vc1 21:37 Care prior to arrival: Medication(s) given: midazolam 1.25mg X 2 IV initiated. 22 GA, vc1 in the right hand. 21:37 Activity prior to arrival: unresponsive. Mechanism of Injury: No Mechanism of Injury. vc1 Transition of care: patient was not received from another setting of care. Triage Assessment: 21:37 General: Appears obese, Behavior is unresponsive. Pain: Unable to use pain scale. vc1 Patient is unresponsive. EENT: No deficits noted. Neuro: Level of Consciousness is awake, obtunded, Oriented to none. Cardiovascular: Patient's skin is warm and dry. Rhythm is sinus tachycardia. Respiratory: Airway is patent Respiratory effort is even, unlabored, Respiratory pattern is symmetrical, tachypnea. GI: Abdomen is non-distended, obese. : No deficits noted. Derm: Skin is intact, is healthy with good turgor, Skin is clammy, Skin is normal, Skin temperature is hot. Musculoskeletal: No deficits noted. Historical: - Allergies: 21:43 Amoxicillin; vc1 21:43 PENICILLINS; vc1 - Home Meds: 21:50 Unable to obtain [Active]; vc1 - PMHx: 21:50 Unable to Obtain; vc1 - PSHx: 21:43 section; ectopic ; vc1 - Immunization history:: Adult Immunizations unknown. - Infectious Disease History:: pt unresponsive. - Social history:: Smoking status: unknown. Screenin:[facility] ED Fall Risk Assessment (Adult) History of falling in the last 3 months, cp4 including since admission No falls in past 3 months (0 pts) Confusion or Disorientation Yes (5 pts) Intoxicated or Sedated No (0 pts) Impaired Gait No (0 pts) Mobility Assist Device Used No (0 pt) Altered Elimination Score/Fall Risk Level 3 or more points = High Risk Oriented to surroundings, Maintained a safe environment, Assessed \\T\\ reinforced patient's understanding of fall precautions, Hourly rounding (assess needs \\T\\ fall precautionary measures) done, Implemented a Fall Risk Plan of Care. Abuse screen: Denies threats or abuse. Denies injuries from another. Nutritional screening: No deficits noted. Tuberculosis screening: No symptoms or risk factors identified. Never had TB. Assessment: 21:51 General: Appears distressed, uncomfortable, Behavior is unresponsive. Pain: Unable to cp4 use pain scale. Patient is unresponsive. 21:51 Neuro: Level of Consciousness is awake, unresponsive, Oriented to none. Cardiovascular: cp4 Patient's skin is warm and dry. Rhythm is sinus tachycardia. Respiratory: Airway is patent Respiratory effort is even, unlabored. GI: No deficits noted. : No deficits noted. EENT: No deficits noted. Derm: No deficits noted. Musculoskeletal: No deficits noted. 22:30 Neuro: Level of Consciousness is awake, alert, Oriented to person. cp4 Psych: 21:37 [place]unez Suicide Severity Screening: In the past month, have you wished you were cp4 or wished you could go to sleep and not wake up? Patient responds "No." "In the past month, have you actually had any thoughts of killing yourself?" Patient responds "no." "In your lifetime, have you ever done anything, started to do anything, or prepared to do anything to end your life?" Patient responds "no.". Subjective: Patient's mood is flat Delusions are denied, Hallucinations are denied Having thoughts of none. Objective: Patient is flat. Interventions: Patient placed in hospital gown. Safety Checks: Door is open. Patient uses cocaine, Last use was last several days. Commitment: Patient will be a voluntary commitment. Vital Signs: 21:37 BP 140 / 100; Pulse 119; Resp 35; Temp 100.3(A); Pulse Ox 92% on R/A; vc1 22:49 BP 128 / 87; Pulse 117; Resp 26; Pulse Ox 99% ; cp4 23:30 BP 121 / 81; Pulse 105; Resp 24; Pulse Ox 99% ; cp4 11/01 00:26 BP 133 / 104; Pulse 101; Resp 24; Pulse Ox 100% ; cp4 01:05 Weight 68.04 kg; Height 5 ft. 3 in. ; Pain 0/10; tb4 02:18 BP 129 / 88; Pulse 98; Resp 22; Temp 98.1; Pulse Ox 100% on R/A; Pain 0/10; tb4 03:45 BP 123 / 77; Pulse 84; Resp 20; Pulse Ox 98% on R/A; Pain 0/10; tb4 01:05 Body Mass Index 26.57 (68.04 kg, 160.02 cm) tb4 01:05 Pain Scale: Adult tb4 02:18 Pain Scale: Adult tb4 03:45 Pain Scale: Adult tb4 ED Course: 10/31 21:22 Patient arrived in ED. vc1 21:23 Kvng Rajan DO is Attending Physician. ms3 21:36 Susy Ramirez is Primary Nurse. cp4 21:37 Arm band placed on right wrist. vc1 21:42 Triage completed. vc1 21:42 CXR XRAY In Process Unspecified. EDMS 21:51 Bed in low position. Call light in reach. Side rails up X2. cp4 21:51 No provider procedures requiring assistance completed. Maintain EMS IV. Dressing cp4 intact. Good blood return noted. Site clean \\T\\ dry. Gauge \\T\\ site: 20 left hand. Flushed with 10 mL NS. 22:05 CT Head Brain wo Cont In Process Unspecified. EDMS 11/01 01:00 Amina Soni MD is Hospitalizing Provider. ms3 05:03 Provided Education on: admission. cp4 05:03 Patient admitted, IV remains in place. cp4 Administered Medications: 10/31 22:46 Drug: NS 0.9% IV 1000 ml IV at 1 bolus Per protocol; to be given as a bolus over 60 tb4 minutes Route: IV; Rate: 1 bolus; Site: right hand; 11/01 00:27 Follow up: Response: No adverse reaction; IV Status: Completed infusion tb4 01:04 Drug: Potassium Chloride IV 20 mEq IV at calculated rate once; administer over 1-2 tb4 hours Route: IV; Rate: calculated rate; Site: left hand; 03:44 Follow up: IV Status: Completed infusion cp4 01:04 Drug: Potassium Chloride PO 40 mEq PO once Route: PO; tb4 03:43 Follow up: Response: No adverse reaction cp4 Medication: 10/31 21:51 VIS not applicable for this client. cp4 Outcome: 11/01 01:01 Decision to Hospitalize by Provider. ms3 05:03 Admitted to Med/surg accompanied by tech, via stretcher, room 232, with chart, cp4 05:03 Condition: stable 05:03 Instructed on the need for admit, 05:04 Patient left the ED. cp4 Signatures: Dispatcher [employer] EDHI Kvng Rajan DO DO ms3 Larissa Alaniz, RN RN vc1 Susy Ramirez cp4 Tahira Treviño, RN RN tb4 Corrections: (The following items were deleted from the chart) 10/31 21:47 21:43 Care prior to arrival: IV initiated. 20 GA, in the left hand, vc1 vc1
--- NOTE | 2024-11-01 01:02 | EDPHYS ---
Physician Documentation [facility] Name: Darling Sorenson Age: 34 yrs Sex: Female : 1990 Arrival Date: 10/31/2024 Time: 21:14 Bed 2 Private MD: ED Physician Kvng Rajan HPI: 10/31 21:32 This 34 yrs old Female presents to ER via Unassigned with complaints of ms3 Altered Mental Status. 21:32 34-year-old female presents feeling EMS after they were called for patient having ms3 altered mental status. EMS states patient's boyfriend told patient had been using cocaine since yesterday. EMS was told patient took Benadryl tonight to help her sleep. EMS states her initial blood glucose level was 58, D10 was given with improvement of patient's blood glucose level. EMS administered a total of 2.5 mg of midazolam secondary to cocaine use. EMS estimates patient has been altered for at least 2 hours. Patient is noncontributory to HPI.. Historical: - Allergies: 21:43 Amoxicillin; vc1 21:43 PENICILLINS; vc1 - Home Meds: 21:50 Unable to obtain [Active]; vc1 - PMHx: 21:50 Unable to Obtain; vc1 - PSHx: 21:43 section; ectopic ; vc1 - Immunization history:: Adult Immunizations unknown. - Infectious Disease History:: pt unresponsive. - Social history:: Smoking status: unknown. ROS: 21:32 Unable to obtain ROS due to altered mental status, ms3 Exam: 21:32 Head/Face: Normocephalic, atraumatic. ms3 21:32 Constitutional: The patient appears awake, non-diaphoretic, obese, 21:32 Eyes: Periorbital structures: appear normal, Pupils: Pupils equal round and reactive to light, 21:32 Cardiovascular: Rate: tachycardic, Rhythm: regular, Pulses: no pulse deficits are appreciated, Heart sounds: normal, normal S1and S2, 21:32 Abdomen/GI: Inspection: obese Bowel sounds: normal, in all quadrants, Palpation: soft, in all quadrants, 21:36 ECG was reviewed by the Attending Physician. ms3 21:36 Respiratory: the patient does not display signs of respiratory distress, Respirations: ms3 normal, symetrical, no use of accessory muscles, no grunting, no evidence of nasal flaring, Breath sounds: are clear throughout, Respiratory rate: 34 Vital Signs: 21:37 BP 140 / 100; Pulse 119; Resp 35; Temp 100.3(A); Pulse Ox 92% on R/A; vc1 22:49 BP 128 / 87; Pulse 117; Resp 26; Pulse Ox 99% ; cp4 23:30 BP 121 / 81; Pulse 105; Resp 24; Pulse Ox 99% ; cp4 08/ 00:26 BP 133 / 104; Pulse 101; Resp 24; Pulse Ox 100% ; cp4 01:05 Weight 68.04 kg; Height 5 ft. 3 in. ; Pain 0/10; tb4 02:18 BP 129 / 88; Pulse 98; Resp 22; Temp 98.1; Pulse Ox 100% on R/A; Pain 0/10; tb4 03:45 BP 123 / 77; Pulse 84; Resp 20; Pulse Ox 98% on R/A; Pain 0/10; tb4 01:05 Body Mass Index 26.57 (68.04 kg, 160.02 cm) tb4 01:05 Pain Scale: Adult tb4 02:18 Pain Scale: Adult tb4 03:45 Pain Scale: Adult tb4 MDM: 10/31 21:35 Medical Screening Exam initiated ms3 22:31 Differential Diagnosis: CVA, electrolyte abnormality, alcohol intoxication, ms3 hypoglycemia, intracranial bleed, meningitis, overdose, volume depletion. ED course: Patient mental status improved at this time. Patient is verbal, more alert. Patient is not aware of place or date at this time.. 11/01 01:01 Data reviewed: vital signs, nurses notes, lab test result(s), EKG, radiologic studies, ms3 and as a result, I will admit patient. Consideration of Admission/Observation Patient was admitted/placed on observation. Management of patient was discussed with the following: Hospitalist: Dr Soni. I considered the following discharge prescriptions or medication management in the emergency department Medications were administered in the Emergency Department. See MAR. Independent interpretation of the following test(s) in the Emergency Department EKG: See my EKG interpretation above CT Scan: My interpretation is CT head without contrast images reviewed by me do not reveal ICH. Historians other than the Patient: EMS: [facility]. Counseling: I had a detailed discussion with the patient and/or guardian regarding the historical points, exam findings, and any diagnostic results supporting the discharge/admit diagnosis, lab results, radiology results, the need for further work-up and treatment in the hospital. ED course: Discussed case with Dr. Soni and he accepts patient for admission. At this time patient is alert and oriented x 3. Patient understands and agrees with necessity for admission.. 10/31 21:30 Order name: Acetaminophen; Complete Time: 22:49 ms3 10/31 21:30 Order name: BMP; Complete Time: 22:49 ms3 10/31 21:30 Order name: CBC with Diff; Complete Time: 22:26 ms3 10/31 21:30 Order name: Ethanol; Complete Time: 22:49 ms3 10/31 21:30 Order name: Hepatic Function; Complete Time: 22:49 ms3 10/31 21:30 Order name: Test, Urine ms3 10/31 21:30 Order name: Protime (+inr); Complete Time: 22:26 ms3 10/31 21:30 Order name: Ptt, Activated; Complete Time: 22:26 ms3 10/31 21:30 Order name: Salicylate; Complete Time: 00:33 ms3 10/31 21:30 Order name: Urine Drug Screen; Complete Time: 00:33 ms3 10/31 21:40 Order name: BNP; Complete Time: 22:49 ms3 10/31 21:40 Order name: Blood Culture Adult (2) ms3 10/31 21:40 Order name: Lactate w/ 2H reflex if indic.; Complete Time: 22:49 ms3 10/31 21:40 Order name: Troponin HS; Complete Time: 22:49 ms3 10/31 22:10 Order name: UA Rfx Moreno Cult if indicated; Complete Time: 00:33 ms3 10/31 22:40 Order name: Ghost Lactate-NO COLLECT Timer; Complete Time: 02:20 EDMS 08 00:30 Order name: Lactate w/ 2H reflex if indic.; Complete Time: 02:20 cp4 08 00:57 Order name: Magnesium; Complete Time: 04:34 EDMS 11/01 00:57 Order name: Creatine Phosphokinase; Complete Time: 04:34 EDMS 11/01 00:57 Order name: Thyroid Stimulating Hormone; Complete Time: 04:34 EDMS 11/01 00:57 Order name: CBC with Automated Diff EDMS 11/01 00:57 Order name: CBC with Automated Diff EDMS 11/01 00:57 Order name: Comprehensive Metabolic Panel EDMS 11/01 00:57 Order name: Comprehensive Metabolic Panel EDMS 11/01 00:57 Order name: Troponin High Sensitivity EDMS 11/01 00:57 Order name: Troponin High Sensitivity EDMS 11/01 00:57 Order name: Troponin High Sensitivity EDMS 11/01 00:57 Order name: Troponin High Sensitivity EDMS 11/01 00:58 Order name: Lactate w/ 2H reflex if indic. EDMS 10/31 21:31 Order name: CT Head Brain wo Cont; Complete Time: 22:26 ms3 10/31 21:32 Order name: CXR XRAY; Complete Time: 22:26 ms3 10/31 21:40 Order name: EKG; Complete Time: 21:41 ms3 11/01 00:57 Order name: CONS Physician Consult EDMS 10/31 21:30 Order name: EKG - Nurse/Tech; Complete Time: 21:36 ms3 10/31 21:30 Order name: IV Saline Lock; Complete Time: 21:36 ms3 10/31 21:30 Order name: Labs collected and sent; Complete Time: 21:55 ms3 10/31 21:30 Order name: O2 Per Protocol; Complete Time: 21:36 ms3 10/31 21:30 Order name: O2 Sat Monitoring; Complete Time: 21:36 ms3 10/31 21:30 Order name: Suicide Screening (Trail); Complete Time: 21:36 ms3 10/31 21:40 Order name: Accucheck; Complete Time: 22:58 ms3 10/31 21:40 Order name: Cardiac monitoring; Complete Time: 21:41 ms3 10/31 21:40 Order name: IV Saline Lock - Large Bore; Complete Time: 21:41 ms3 10/31 21:40 Order name: Vital Signs; Complete Time: 21:41 ms3 EC/09 21:36 Rate is 120 beats/min. Rhythm is regular. QRS [place] is Normal. [place] interval is normal. ms3 QRS interval is normal. Clinical impression: Sinus tachycardia. Interpreted by me. Reviewed by me. Administered Medications: 22:46 Drug: NS 0.9% IV 1000 ml IV at 1 bolus Per protocol; to be given as a bolus over 60 tb4 minutes Route: IV; Rate: 1 bolus; Site: right hand; 11/01 00:27 Follow up: Response: No adverse reaction; IV Status: Completed infusion tb4 01:04 Drug: Potassium Chloride IV 20 mEq IV at calculated rate once; administer over 1-2 tb4 hours Route: IV; Rate: calculated rate; Site: left hand; 03:44 Follow up: IV Status: Completed infusion cp4 01:04 Drug: Potassium Chloride PO 40 mEq PO once Route: PO; tb4 03:43 Follow up: Response: No adverse reaction cp4 Disposition: 01:07 Critical Care:. ms3 01:08 Chart complete. ms3 Disposition Summary: 11/01/24 01:01 Hospitalization Ordered Notes: Hospitalization Status: Observation ms3 Provider: Amina Soni ms3 Location: Telemetry/[facility] (Inpatient) ms3 Condition: Stable ms3 Problem: new ms3 Symptoms: are unchanged ms3 Bed/Room Type: Standard ms3 Room Assignment: 232(11/01/24 03:32) vc1 Diagnosis - Cocaine abuse ms3 - Altered mental status, unspecified ms3 Forms: - Medication Reconciliation Form ms3 - SBAR form ms3 - Leadership Thank You Letter ms3 Critical care time excluding procedures: 01:07 Critical care time: Bedside Care: 30 minutes, Family Intervention: 10 minutes. Total ms3 time: 40 minutes Signatures: Dispatcher [employer] EDMS Kvng Rajan DO DO ms3 Larissa Alaniz RN RN vc1 Tahira Treviño RN RN tb4 Susy Ramirez cp4 Corrections: (The following items were deleted from the chart) 10/31 21:31 21:31 ACETAMINOPHEN+C.LAB.BRZ ordered. EDMS EDMS 21:31 21:31 BASIC METABOLIC PANEL+C.LAB.BRZ ordered. EDMS EDMS 21:31 21:31 CBC+H.LAB.BRZ ordered. EDMS EDMS 21:31 21:31 ETHANOL+C.LAB.BRZ ordered. EDMS EDMS 21:31 21:31 HEPATIC FUNCTION+C.LAB.BRZ ordered. EDMS EDMS 21:31 21:31 Test, Urine+UC.LAB.BRZ ordered. EDMS EDMS 21: 21:31 PROTIME (+INR)+COAG.LAB.BRZ ordered. EDMS EDMS 21: 21:31 PTT, ACTIVATED+COAG.LAB.BRZ ordered. EDMS EDMS 21: 21:31 SALICYLATE+C.LAB.BRZ ordered. EDMS EDMS 21: 21:31 URINE DRUG SCREEN+UC.LAB.BRZ ordered. EDMS EDMS 21:38 21:32 Respiratory: Lungs have equal breath sounds bilaterally, clear to auscultation ms3 and percussion. No rales, rhonchi or wheezes noted. No increased work of breathing, no retractions or nasal flaring. ms3 11/01 03:32 01:01 ms3 vc1
[2024-11-01] MEDS ORDERED: NA CHLORIDE 0.9% 250 ML ONE (02:32)
[2024-11-01] MEDS ORDERED: D5.45NS W/KCL 20MEQ 0 ML IV ONE (03:12)
[2024-11-01 05:16] VITALS: O2SAT 98
[2024-11-01] MEDS: D5NS KCL 20MEQ 20 MEQ/1,000 ML BAG IV SCH (05:21)
[2024-11-01 07:40] VITALS: BMI 42.3
[2024-11-01] MEDS ORDERED: FOLIC ACID 1 MG, MULTIVITAMINS INJ 10 ML, THIAMINE HCL 100 MG in NA CHLORIDE 0.9% 1,000 ML IV SCH (09:00)
[2024-11-01] MEDS: FAMOTIDINE 20 MG/2 ML VIAL IV SCH (09:21)
[2024-11-01] MEDS: FOLIC ACID 1 MG, MULTIVITAMINS INJ 10 ML, THIAMINE HCL 100 MG in NA CHLORIDE 0.9% 1,000 ML IV SCH (09:22)
--- NOTE | 2024-11-01 15:37 | P.PN ---
Date of Service: 11/01/24 Patient seen and examined. She is awake and alert. She denies any new complaint Patient states that she took 2 tablets of sleep aid (doxylamine) AMS likely drug-induced secondary to polypharmacy-combination of benzodiazepine and alcohol. Start regular diet. Repeat BMP and replace potassium as needed.
[2024-11-01 16:41] LABS: Anion Gap 8.5 mEq/L (5.0-15.0); BUN Blood Urea Nitrogen 4.0 mg/dL (7-18); Glucose Level 70.0 mg/dL (74-106)
[2024-11-01 16:46] LABS: Potassium 2.5 mEq/L (3.5-5.1)
[2024-11-01 18:18] LABS: Anion Gap 8.0 mEq/L (5.0-15.0); BUN Blood Urea Nitrogen 7.0 mg/dL (7-18); Glucose Level 102.0 mg/dL (74-106); Potassium 4.0 mEq/L (3.5-5.1)
[2024-11-01 20:21] VITALS: BP 136/87; TEMP 97.4
== END 2024-11-01 20:18 | disposition home or self-care (01) | DRG 92 ==
LOC: ER 21:14 → ERHOLD 11-01 00:49 → 2ND 11-01 03:50
PROVIDERS: ADMIT Internal Medicine; ATTEND Internal Medicine
DX: G92.8 Other toxic encephalopathy (principal); E87.20 Acidosis, unspecified; E87.6 Hypokalemia; G47.00 Insomnia, unspecified; F14.10 Cocaine abuse, uncomplicated; F10.10 Alcohol abuse, uncomplicated; T40.5X5A Adverse effect of cocaine, initial encounter; T45.0X5A Adverse effect of antiallergic and antiemetic drugs, initial encounter; Z88.0 Allergy status to penicillin; Z88.1 Allergy status to other antibiotic agents; Y90.0 Blood alcohol level of less than 20 mg/100 ml
CPT/HCPCS: 36415; 70450; 71045; 80048; 80076; 80143; 80179; 80307; 81001; 82077; 82550; 82947; 83605; 83735; 83880; 84443; 84484; 85025; 85610; 85730; 87040; 93005; 96361; 96365; 96366; 99285; J3411; J3480; J7030; J7050